=== PATIENT | male | born 1950 | race Caucasian/White ===

== ENCOUNTER 2016-09-03 10:08 | Inpatient (IN) | payer OTHER ==
[2016-09-03] VITALS (7 sets, daily range): BP systolic 133–176; BP diastolic 76–105; PULSE 57–78; RESP 15–19; TEMP 97.3–98.9; O2SAT 96–98
[~2016-09-03] VITALS: Ht 171.4 cm; Wt 80.1 kg
[~2016-09-03 10:08] MED LIST: ATEN100T PO; FENO145T2 PO; GABA300C5 PO; HYDR-3583 PO
[2016-09-03 11:28] LABS: AUTOMATED NEUTROPHIL # 6.7 TH/MM3 (1.8-7.7); BASOPHIL # 0.1 TH/MM3 (0-0.2); BASOPHIL % 0.6 % (0.0-2.0); EOSINOPHIL # 0.1 TH/MM3 (0-0.4); HEMATOCRIT 48.5 % (39.0-51.0); HEMO FLAGS DIFF FINAL; LYMPH % 13.3 % (9.0-44.0); LYMPHOCYTE # 1.2 TH/MM3 (1.0-4.8); MEAN CELL VOLUME 92.9 FL (80.0-100.0); MEAN CORPUSCULAR HEMOGLOBIN 30.5 PG (27.0-34.0); MEAN CORPUSCULAR HGB CONC 32.8 % (32.0-36.0); MONO % 5.6 % (0.0-8.0); NEUT % 79.5 % (16.0-70.0); PLATELET COUNT 261 TH/MM3 (150-450); RED BLOOD COUNT 5.21 MIL/MM3 (4.50-5.90); RED CELL DISTRIBUTION WIDTH 13.4 % (11.6-17.2); WHITE BLOOD COUNT 8.6 TH/MM3 (4.0-11.0)
--- NOTE | 2016-09-03 11:40 | PD ---
HPI Chief Complaint: Neuro Symptoms/ Deficits Time Seen by Provider: 10:27 Travel History International Travel<30 days: No Contact w/Intl Traveler<30days: No Traveled to known affect area: No History of Present Illness HPI 65yo M with PMH of HTN brought in by sister and brother in law for evaluation. States that he has been acting strange since yesterday such as stating the TV was not on when it was and having trouble with salad dressing bottle. Pt returned home at around 5pm and sister noticed his mannerism was different. Pt was at work today and coworkers stated he had a facial droop that had resolved when he got to the ED. Stated that his right lips were up and left side was down. Pt denies any fever, chest pain, sob, n/v, abdominal pain, focal weakness or numbness. PFSH Past Medical History High Cholesterol: Yes Hypertension: Yes Past Surgical History Surgical History: No Previous Surgery Social History Alcohol Use: Yes (2/DAY RUM) Tobacco Use: Yes (1/2 PPD) Allergies-Medications (Allergen,Severity, Reaction): Coded Allergies: No Known Allergies (Unverified , 08/25/16) Reported Meds & Prescriptions Reported Meds & Active Scripts Active Hydrocodone-Acetaminophen 10-325 mg Tab 1 Tab PO Q6H PRN Reported Atenolol 100 Mg Tab 100 Mg PO DAILY Fenofibrate 145 Mg Tab 125 Mg PO DAILY Review of Systems Except as stated in HPI: all other systems reviewed are Neg Physical Exam Narrative GENERAL: 65yo M not in distress. SKIN: Warm and dry. HEAD: Atraumatic. Normocephalic. EYES: Pupils equal and round. No scleral icterus. No injection or drainage. ENT: No nasal bleeding or discharge. Mucous membranes pink and moist. NECK: Trachea midline. No JVD. CARDIOVASCULAR: Regular rate and rhythm. No murmur appreciated. RESPIRATORY: No accessory muscle use. Clear to auscultation. Breath sounds equal bilaterally. GASTROINTESTINAL: Abdomen soft, non-tender, nondistended. MUSCULOSKELETAL: No obvious deformities. No clubbing. No cyanosis. No edema. NEUROLOGICAL: Awake and alert. No obvious cranial nerve deficits. Motor grossly within normal limits. Normal speech. PSYCHIATRIC: Appropriate mood and affect; insight and judgment normal. Data Data Last Documented VS Vital Signs Date Time Temp Pulse Resp B/P Pulse Ox O2 Delivery O2 Flow Rate FiO2 2/23/17 10:30 98 21 09/03/16 10:27 98.9 57 15 155/[address] Brain W/O Iv Contrast(Rout) (09/03/16 ) Complete Blood Count With Diff (09/03/16 11:06) Basic Metabolic Panel (Bmp) (09/03/16 11:06) Prothrombin Time / Inr (Pt) (09/03/16 11:06) Act Partial Throm Time (Ptt) (09/03/16 11:06) Consult Neurology (09/03/16 ) Aspirin (Aspirin) (09/03/16 12:30) Admit Order (Ed Use Only) (09/03/16 12:24) Labs Laboratory Tests Test 09/03/16 11:15 White Blood Count 8.6 TH/MM3 Red Blood Count 5.21 MIL/MM3 Hemoglobin 15.9 GM/DL Hematocrit 48.5 % Mean Corpuscular Volume 92.9 FL Mean Corpuscular Hemoglobin 30.5 PG Mean Corpuscular Hemoglobin 32.8 % Concent Red Cell Distribution Width 13.4 % Platelet Count 261 TH/MM3 Mean Platelet Volume 8.4 FL Neutrophils (%) (Auto) 79.5 % Lymphocytes (%) (Auto) 13.3 % Monocytes (%) (Auto) 5.6 % Eosinophils (%) (Auto) 1.0 % Basophils (%) (Auto) 0.6 % Neutrophils # (Auto) 6.7 TH/MM3 Lymphocytes # (Auto) 1.2 TH/MM3 Monocytes # (Auto) 0.5 TH/MM3 Eosinophils # (Auto) 0.1 TH/MM3 Basophils # (Auto) 0.1 TH/MM3 CBC Comment DIFF FINAL Differential Comment Erythrocyte Sedimentation Rate 1 mm/hr Prothrombin Time 10.9 SEC Prothromb Time International 1.0 RATIO Ratio Activated Partial 27.0 SEC Thromboplast Time Sodium Level 142 MEQ/L Potassium Level 4.0 MEQ/L Chloride Level 108 MEQ/L Carbon Dioxide Level 26.5 MEQ/L Anion Gap 8 MEQ/L Blood Urea Nitrogen 14 MG/DL Creatinine 0.95 MG/DL Estimat Glomerular Filtration 80 ML/MIN Rate Random Glucose 107 MG/DL Calcium Level 9.0 MG/DL MDM Medical Decision Making Medical Screen Exam Complete: Yes Emergency Medical Condition: Yes Interpretation(s) EKG: Sinus bradycardia at 54bpm. Normal axis. No signs of ischemia. Differential Diagnosis CVA vs. TIA Narrative Course 65yo M who was acting different as per sister yesterday afternoon. ? Facial droop at work today. Pt denies any complaints here. CT brain showed evolving right MCA stroke with no evidence of hemorrhage at present. Aspirin 325mg PO given. Discussed with Dr. Pandey from neurology and he will place orders. Discussed with [facility] and admitted to Dr. Thorpe. Labs reviewed, unremarkable. Diagnosis Primary Impression: CVA (cerebral vascular accident) Qualified Code: I63.9 - Cerebrovascular accident (CVA), unspecified mechanism Admitting Information Admitting Physician Requests: Admit Raven Pool DO Sep 03, 2016 11:40
[2016-09-03 11:41] LABS: BICARBONATE 26.5 MEQ/L (21.0-32.0)
[2016-09-03 11:43] LABS: PROTHROMBIN TIME - PATIENT 10.9 SEC (9.8-11.6)
--- NOTE | 2016-09-03 12:00 | RADHPO ---
EXAM DATE/TIME: 09/03/2016 11:21 [facility] COMPARISON: No previous studies available for comparison. INDICATIONS : Evaluate for cerebrovascular accident. Altered mental status and left facial droop since last night. RADIATION DOSE: 65.57 CTDIvol (mGy) MEDICAL HISTORY : Hypertension. SURGICAL HISTORY : None. ENCOUNTER: Initial ACUITY: 1 day PAIN SCALE: 0/10 LOCATION: cranial TECHNIQUE: Multiple contiguous axial images were obtained of the head. Using automated exposure control and adj ustment of the mA and/or kV according to patient size, radiation dose was kept as low as reasonably a chievable to obtain optimal diagnostic quality images. FINDINGS: There is hypodensity and local effacement of cortical sulci in the low to mid convexity right frontal region consistent with evolving MCA stroke. There is also diminished subcortical and periventricular white matter hypodensity in the high convexity region which may be more chronic. The left hemisphere is intact and unremarkable. There is no evidence of macroscopic hemorrhage at present. The extracran ial structures are benign and intact. CONCLUSION: Evolving right MCA stroke with no evidence of hemorrhage at present. Jeff Trevino MD on September 03, 2016 at 11:55 Board Certified Radiologist. This report was verified electronically.
[2016-09-03] MEDS ORDERED: D5-1/2 NS + KCL 20 MEQ INJ 1,000 ML IV SCH (12:25)
[2016-09-03] MEDS ORDERED: DEXTROSE 50% IN WATER 50 ML VIAL(D50) IV PUSH PRN (12:30)
[2016-09-03] MEDS ORDERED: SODIUM CHLORIDE 0.9% FLUSH 5 ML FLUSH IVF PRN (12:30)
[2016-09-03] MEDS ORDERED: ONDANSETRON HCL 4 MG/2 ML VIAL IVP PRN (12:30)
[2016-09-03] MEDS ORDERED: GLUCAGON 1 MG/ML VIAL IM/SQ PRN (12:30)
[2016-09-03] MEDS ORDERED: NALOXONE HCL 0.4 MG/ML AMP IV PRN (12:30)
[2016-09-03] MEDS ORDERED: ASPIRIN 325 MG TAB PO ONE (12:30)
[2016-09-03] MEDS ORDERED: SODIUM CHLORIDE 0.9% FLUSH 5 ML FLUSH FLUSH PRN (12:30)
[2016-09-03] MEDS ORDERED: SODIUM CHLOR 0.9% 1000 ML INJ 1,000 ML IV SCH (12:41)
[2016-09-03] MEDS: HEPARIN SODIUM - SQ 10,000 UNITS/ML VIAL SQ SCH ×2 (12:51→20:20)
[2016-09-03 13:26] LABS: ALT (GPT) 30 U/L (12-78); AST (GOT) 18 U/L (15-37)
[2016-09-03 13:29] LABS: CREATINE KINASE 216 U/L (39-308)
[2016-09-03 13:58] LABS: BLOOD, URINE NEG (NEG); GLUCOSE,URINE NEG (NEG); KETONE, URINE NEG (NEG); NITRITE,URINE NEG (NEG); PH, URINE 5.5 (5.0-8.5)
[2016-09-03] MEDS ORDERED: GADODIAMIDE PF 287 MG/ML 20 ML VIAL (for RAD MRI) IV ONE (14:02)
[2016-09-03 14:26] LABS: METHOD OF COLLECTION CLEAN CATCH
[2016-09-03 14:27] LABS: COMMENT (UR) CULT NOT INDICATED; CULTURE IF INDICATED CULT NOT INDICATED; RBC, URINE 0-3 /hpf (0-3); SQUAMOUS EPITHELIAL CELL URINE 0-5 /hpf (0-5); URINE COLOR YELLOW (YELLW/STRAW); WBC, URINE 0-2 /hpf (0-5)
--- NOTE | 2016-09-03 14:41 | RADHPO ---
EXAM DATE/TIME: 09/03/2016 13:51 [facility] COMPARISON: CT BRAIN W/O CONTRAST, September 03, 2016, 11:21. INDICATIONS : CVA. Left facial droop and confusion. CONTRAST: 20 cc Omniscan (gadodiamide) IV MEDICAL HISTORY : Hypertension. SURGICAL HISTORY : Right knee surgery. ENCOUNTER: Initial ACUITY: 1 day PAIN SCORE: 0/10 LOCATION: Head. TECHNIQUE: Multiplanar, multisequence MRI of the brain was performed both prior to and following the administrat ion of paramagnetic contrast. FINDINGS: There is an evolving right low to mid convexity frontal stroke. There is mild nonacute signal change in portions of the high convexity right parietal cortex and subcortical white matter as well as in po rtions of the right centrum semiovale. There is no evidence of hemorrhage at present. There is no georgie dence of abnormal parenchymal enhancement or underlying mass lesion. Left hemisphere is unremarkable. Posterior fossa and brainstem structures are unremarkable. There is mild mucosal disease in the maxillary antra. CONCLUSION: Early subacute right frontal stroke. Jeff Trevino MD on September 03, 2016 at 14:35 Board Certified Radiologist. This report was verified electronically.
--- NOTE | 2016-09-03 14:44 | RADHPO ---
EXAM DATE/TIME: 09/03/2016 13:51 [facility] COMPARISON: No previous studies available for comparison. INDICATIONS : Stroke. Left facial droop and confusion. CONTRAST: 20 cc Omniscan (gadodiamide) IV MEDICAL HISTORY : Hypertension. SURGICAL HISTORY : Right knee surgery. ENCOUNTER: Initial ACUITY: 1 day PAIN SCORE: 0/10 LOCATION: Head. Percent stenosis is calculated using the diameter of the stenotic region over the diameter of the nor mal distal internal carotid artery. TECHNIQUE: Bolus infused MRA of the extracranial circulation was performed using a neurovascular coil. Post pro cessing was performed including rotationg subvolume maximum intensity projections of each carotid art lesley, rotating full volume maximum intensity projections of both carotid arteries, sagittal and luna l sliding thin slab reformations of each carotid artery, and left oblique sliding thin slab reformati on through the aortic arch to include the origin of the arch branch vessels. FINDINGS: AORTIC ARCH: There is a three vessel origin of the great vessels from the aorta. No evidence of ostial narrowing. RIGHT CAROTID: High-grade stenotic narrowing at the origin of the right internal carotid artery. Above this, the ves byron is small in caliber but patent to the skull base. LEFT CAROTID: The common carotid artery is intact. The carotid bulb has a normal configuration without ulceration or narrowing. The internal carotid artery lumen is smooth without stenosis. The external carotid ar sheila is intact. VERTEBRALS: The vertebral arteries have a symmetric diameter. No stenotic lesions are seen. CONCLUSION: High grade stenosis at the origin of the right internal carotid artery. Jeff Trevino MD on September 03, 2016 at 14:40 Board Certified Radiologist. This report was verified electronically.
--- NOTE | 2016-09-03 14:46 | RADHPO ---
EXAM DATE/TIME: 09/03/2016 13:51 [facility] COMPARISON: No previous studies available for comparison. INDICATIONS : CVA. Left facial droop and confused. MEDICAL HISTORY : Hypertension. SURGICAL HISTORY : Knee surgery. ENCOUNTER: Initial ACUITY: 1 day PAIN SCORE: 0/10 LOCATION: Head. Please note a normal MRA of the brain does not entirely exclude the possibility of a small aneurysm, nor the possibility of distal intracranial vessel disease. TECHNIQUE: 3D time of flight MRA was performed. Source images, multiplanar STS MIP, and 3D volume MIP reconstru ctions were reviewed. FINDINGS: There is severely diminished flow related enhancement of the visualized right internal carotid artery . Intracranially, the anterior circulation vessels are intact but diminutive by comparison to the con tralateral left side. The posterior circulation vessels are intact and unremarkable. CONCLUSION: Severely diminished flow related enhancement in the right internal denise and artery and diminished sign al throughout the anterior circulation vessels on the right. Jeff Trevino MD on September 03, 2016 at 14:43 Board Certified Radiologist. This report was verified electronically.
[2016-09-03] MEDS ORDERED: INSULIN ASPART SUPPLEMENTAL SCALE SQ SCH (16:00)
--- NOTE | 2016-09-03 16:41 | RADHPO ---
EXAM DATE/TIME: 09/03/2016 14:51 [facility] COMPARISON: MRA CAROTIDS W CONTRAST, September 03, 2016, 13:51. INDICATIONS : Cerebral vascular accident, left sided facial drooping. MEDICAL HISTORY : Hypercholesterolemia. Hypertension. SURGICAL HISTORY : Knee surgery. ENCOUNTER: Initial ACUITY: 2 days PAIN SCORE: 0/10 LOCATION: Bilateral neck PEAK SYSTOLIC VELOCITIES (cm/sec): ICA/CCA RATIO: Right: 1.3 Left: 1.7 ICA: Right: 77.9 Left: 99.5 CCA: Right: 60.1 Left: 58.4 ECA: Right: 81.2 Left: 78.8 VERTEBRAL: Right: 43.5 antegrade Left: 40.6 antegrade Elevated flow velocities and ICA/CCA ratios have been found to correlate with increased degrees of vessel stenosis, calculated as percentage of diameter relative to a normal segment of distal ICA/CCA FINDINGS: Examination quality is less than optimal due to patient inability to cooperate with examination. RIGHT CAROTID: There is mild calcified plaque in the carotid bulb and severe calcified plaque in the proximal staff internist office based only al carotid artery. The waveforms are within normal limits. LEFT CAROTID: No significant stenosis is visualized. There is mild calcified plaque in the carotid bulb. The wavefo tona are within normal limits. VERTEBRAL ARTERIES: Antegrade flow is seen in both vertebral arteries. MISCELLANEOUS: None. CONCLUSION: 1. Severe calcified plaque with high-grade stenosis in the proximal right internal carotid artery. Ve locity measurements are decreased through this area with high resistance waveform indicating a high-g rade stenosis greater than 70%. 2. There is mild atherosclerotic disease in the left carotid bulb but less than 50% stenosis is prese nt. 3. There is antegrade flow in both vertebral arteries. Jeff Patel MD on September 03, 2016 at 16:27 Board Certified Radiologist. This report was verified electronically.
--- NOTE | 2016-09-03 16:58 | EC ---
Study Study Date:09/03/2016 STUDY CONCLUSIONS SUMMARY - Left ventricle: The cavity size was normal. Systolic function was normal. The estimated ejection fraction was in the range of 55% to 60%. Wall motion was normal; there were no regional wall motion abnormalities. Doppler parameters are consistent with abnormal left ventricular relaxation (grade 1 diastolic dysfunction). - Mitral valve: Mild regurgitation. - Tricuspid valve: Mild regurgitation. If LV function is below 40, please consider prescribing an ACEI or ARB or document rationale for non-use. PROCEDURE DATA STUDY STATUS: Elective. Procedure: Transthoracic echocardiography. Image quality was fair. Scanning was performed from the parasternal, apical, and subcostal acoustic windows. Study completion: The patient tolerated the procedure well. Transthoracic echocardiography. M-mode, complete 2D, complete spectral Doppler, and color Doppler. Patient status: Inpatient. CARDIAC ANATOMY LEFT VENTRICLE: The cavity size was normal. Systolic function was normal. The estimated ejection fraction was in the range of 55% to 60%. Wall motion was normal; there were no regional wall motion abnormalities. Doppler parameters are consistent with abnormal left ventricular relaxation (grade 1 diastolic dysfunction). AORTIC VALVE: The valve appears to be grossly normal. Doppler: There was no stenosis. No significant regurgitation. MITRAL VALVE: The valve appears to be grossly normal. Doppler: There was no evidence for stenosis. Mild regurgitation. LEFT ATRIUM: The atrium was at the upper limits of normal in size. RIGHT VENTRICLE: The cavity size was normal. Systolic function was normal. PULMONIC VALVE: Not well visualized. Doppler: No significant regurgitation. TRICUSPID VALVE: The valve appears to be grossly normal. Doppler: There was no evidence for stenosis. Mild regurgitation. PERICARDIUM: There was no pericardial effusion. BASIC MEASUREMENTS ADULT NORMAL Left ventricle LV internal dimension, ED, chordal level, 44.8 mm 43-52 PLAX LV internal dimension, ES, chordal level, 32.8 mm 23-38 PLAX Fractional shortening, chordal level, PLAX *27 % >29 LV posterior wall thickness, ED 10.2 mm IVS/LVPW ratio, ED 1.27 <1.3 Ventricular septum Septal thickness, ED 13 mm Aortic valve Leaflet separation 20 mm 15-26 Right ventricle RV internal dimension, ED, PLAX 24.3 mm 19-38 BASIC MEASUREMENTS ADULT NORMAL Aortic valve Leaflet separation 20 mm 15-26 Aorta Root diameter, ED 31 mm 20-37 Left atrium Anterior-posterior dimension, ES 40 mm 19-40 LA/aortic root ratio 1.29 DOPPLER MEASUREMENTS ADULT NORMAL Mitral valve Peak E-wave velocity 42.4 cm/s Peak A-wave velocity 64.2 cm/s Peak E/A ratio 0.7 LEGEND: Mean values are shown as u=mean value. Asterisk (*) dunne values outside specified normal range. Prepared and signed by Alan Figueroa [id number]
--- NOTE | 2016-09-03 17:06 | OTSOAPIP ---
TIME SESSION COMPLETED: PM TREATMENT TIME: 0 MINS. CHART REVIEWED. O: ATTEMPTED TO SEE FOR OT EVALUATION, HOWEVER HAVING A PROCEDURE IN ROOM. WILL FOLLOW NEXT DAY. Therapist: EDMOND VÁSQUEZ OT/Eddy Signature on file
[2016-09-03 17:13] LABS: FREE T4 1.23 NG/DL (0.76-1.46); HDL CHOLESTEROL 51.1 MG/DL (40.0-60.0); LDL CHOLESTEROL 24 MG/DL (0-99)
[2016-09-03 17:49] LABS: HEMOGLOBIN A1a 0.9 %; HEMOGLOBIN A1b 1.4 %; HEMOGLOBIN Ao 86.6 %; HEMOGLOBIN LA1C 2.1 %; HEMOGLOBIN P3 3.4 %
[2016-09-03] MEDS: SODIUM CHLOR 0.9% 1000 ML INJ 1,000 ML IV SCH (18:32)
[2016-09-03] MEDS: SODIUM CHLORIDE 0.9% FLUSH 5 ML FLUSH FLUSH SCH (19:39)
[2016-09-03] MEDS ORDERED: SODIUM CHLORIDE 0.9% FLUSH 5 ML FLUSH IVF SCH (21:00)
[2016-09-04] VITALS (10 sets, daily range): BP systolic 133–166; BP diastolic 81–96; PULSE 47–71; RESP 16–18; TEMP 97–98.9; O2SAT 94–98
[2016-09-04] MEDS: SODIUM CHLOR 0.9% 1000 ML INJ 1,000 ML IV SCH ×3 (04:32→23:03)
[2016-09-04 07:34] LABS: AUTOMATED NEUTROPHIL # 5.1 TH/MM3 (1.8-7.7); BASOPHIL # 0.1 TH/MM3 (0-0.2); BASOPHIL % 0.7 % (0.0-2.0); EOSINOPHIL # 0.1 TH/MM3 (0-0.4); EOSINOPHIL % 1.7 % (0.0-4.0); HEMATOCRIT 45.1 % (39.0-51.0); HEMO FLAGS DIFF FINAL; LYMPH % 18.6 % (9.0-44.0); LYMPHOCYTE # 1.3 TH/MM3 (1.0-4.8); MEAN CELL VOLUME 92.7 FL (80.0-100.0); MEAN CORPUSCULAR HEMOGLOBIN 31.5 PG (27.0-34.0); MONO % 7.3 % (0.0-8.0); NEUT % 71.7 % (16.0-70.0); PLATELET COUNT 198 TH/MM3 (150-450); RED BLOOD COUNT 4.86 MIL/MM3 (4.50-5.90); RED CELL DISTRIBUTION WIDTH 13.4 % (11.6-17.2); WHITE BLOOD COUNT 7.1 TH/MM3 (4.0-11.0)
[2016-09-04 08:09] LABS: BICARBONATE 23.8 MEQ/L (21.0-32.0); HDL CHOLESTEROL 40.7 MG/DL (40.0-60.0); POTASSIUM 4.1 MEQ/L (3.5-5.1)
--- NOTE | 2016-09-04 08:31 | HHI.PR ---
Subjective Remarks sr Objective Vital Signs Date Time Temp Pulse Resp B/P Pulse Ox O2 Delivery O2 Flow Rate FiO2 09/04/16 08:16 98.9 60 18 147/89 94 09/04/16 05:43 97.2 71 17 154/88 97 09/04/16 01:30 47 09/04/16 00:21 97.2 63 17 162/89 96 09/03/16 20:22 96 21 09/03/16 20:14 63 09/03/16 20:00 97.3 59 16 160/105 96 09/03/16 16:00 98.6 78 19 133/76 96 09/03/16 15:50 58 16 97 09/03/16 12:29 61 15 176/103 98 09/03/16 10:30 98 21 09/03/16 10:27 98.9 57 15 155/89 98 I/O 09/03/16 09/03/16 09/03/16 09/04/16 09/04/16 09/04/16 07:00 15:00 23:00 07:00 15:00 23:00 Intake Total 937 ml 240 ml Output Total 195 ml 825 ml Balance -195 ml 937 ml -585 ml Intake Oral 280 ml 240 ml IV Total 657 ml Output Urine Total 195 ml 825 ml # Voids 1 1 # Bowel Movements 0 Result Diagram: 09/04/16 0709 09/04/16 0709 Objective Remarks left droop vff 5/5 bue and ble dss legs nl now Assessment and Plan Assessment and Plan imp await vascular but i am hesitant to wait 4-6 weeks for cea asa for now we could add statin? i dw rads about possible earlier stent? they will callme back Jesus Pandey MD Sep 04, 2016 08:31
[2016-09-04] MEDS: SODIUM CHLORIDE 0.9% FLUSH 5 ML FLUSH FLUSH SCH ×2 (08:32→21:00)
[2016-09-04] MEDS: ASPIRIN EC 325 MG TABEC PO SCH (08:32)
[2016-09-04] MEDS: HEPARIN SODIUM - SQ 10,000 UNITS/ML VIAL SQ SCH ×2 (08:32→23:02)
--- NOTE | 2016-09-04 10:22 | HHI.HP ---
[facility] Deep Jaed MD Admission Diagnosis CVA Diagnoses: Chief Complaint: CONFUSION, FACIAL DROOP Travel History International Travel<30 Days: No Contact w/Intl Traveler <30 Da: No Traveled to Known Affected Are: No History of Present Illness This is a 65-year-old male who is generally in good health, history of hypertension and tobacco abuse. Patient was brought into the emergency room by his sister and [id number] for evaluation after he was noted acting confused for the last 2 days. Patient's sister endorses that she noted that he came home from work 2 days ago and he seemed disoriented and taking time doing simple tasks, had trouble opening a salad bottle. He was noted shaking. Initially his sister thought that maybe he had had some alcohol which he denied. Yesterday he actually didn't wake up early to go to work and when she woke him up he thought it was Wednesday. He got up and got dressed and drove to work. She called to check on him and one of his coworkers informed her to come pick him up as he noted at facial droop and that he had not been acting right. He went to the [facility] emergency room and the facial droop had resolved. Patient was evaluated, imaging studies were completed. CT of the brain showed evolving right MCA stroke with no evidence of hemorrhage. Aspirin was given. Dr. Pandey was called and requested transfer to [facility]. Neck MRA has been done and shows high-grade stenosis at the origin of the right internal carotid artery. Patient is examined in the presence of his sister. Patient still has residual facial droop, he is not confused and answering questions appropriately. Patient is somewhat anxious and is noted mildly tremulous. Indicates that he doesn't drink every day but occasionally will have a couple of cocktails a day. Endorses a lot of stress as he recently from his of 32 years. Denies any depression, no suicidal ideation. Patient is admitted for further evaluation and treatment. Review of Systems Constitutional: DENIES: Diaphoretic episodes, Fatigue, Fever, Weight gain, Weight loss, Chills, Dizziness, Change in appetite, Night Sweats Endocrine: DENIES: Heat/cold intolerance, Polydipsia, Polyuria, Polyphagia Eyes: DENIES: Blurred vision, Diplopia, Eye inflammation, Eye pain, Vision loss , Photosensitivity, Double Vision Ears, nose, mouth, throat: DENIES: Tinnitus, Hearing loss, Vertigo, Nasal discharge, Oral lesions, Throat pain, Hoarseness, Ear Pain, Running Nose, Epistaxis, Sinus Pain, Toothache, Odynophagia Respiratory: DENIES: Apneas, Cough, Snoring, Wheezing, Hemoptysis, Sputum production, Shortness of breath Cardiovascular: DENIES: Chest pain, Palpitations, Syncope, Dyspnea on Exertion , PND, Lower Extremity Edema, Orthopnea, Claudication Gastrointestinal: DENIES: Abdominal pain, Black stools, Bloody stools, Constipation, Diarrhea, Nausea, Vomiting, Difficulty Swallowing, Anorexia Genitourinary: DENIES: Sexual dysfunction, Urinary frequency, Urinary incontinence, Urgency, Hematuria, Dysuria, Nocturia, Penile Discharge, Testicular Pain, Testicular Swelling Musculoskeletal: COMPLAINS OF: Back pain, DENIES: Joint pain, Muscle aches, Stiffness, Joint Swelling, Neck pain Integumentary: DENIES: Abnormal pigmentation, Nail changes, Pruritus, Rash Hematologic/lymphatic: DENIES: Bruising, Lymphadenopathy Immunologic/allergic: DENIES: Eczema, Urticaria Neurologic: DENIES: Abnormal gait, Headache, Localized weakness, Paresthesias, Seizures, Speech Problems, Tremor, Poor Balance Psychiatric: COMPLAINS OF: Anxiety, DENIES: Confusion, Mood changes, Depression, Hallucinations, Agitation, Suicidal Ideation, Homicidal Ideation, Delusions Other CONFUSED, FACIAL DROOP Past Family Social History Past Medical History HTN Hyperlipidemia Tobacco abuse Past Surgical History Arthroscopic knee repair Reconstructive back surgery Reported Medications Reported Meds & Active Scripts Active Hydrocodone-Acetaminophen 10-325 mg Tab 1 Tab PO Q6H PRN Reported Atenolol 100 Mg Tab 100 Mg PO DAILY Fenofibrate 145 Mg Tab 125 Mg PO DAILY Allergies: Coded Allergies: No Known Allergies (Unverified , 08/25/16) Active Ordered Medications Inpatient Medications Aspirin 325 mg 325 mg DAILY PO Last administered on 09/04/16t 08:32; Start at 09:00 Dextrose (D50w (Vial) Inj) 25 ml UNSCH PRN IV PUSH HYPOGLYCEMIA-SEE COMMENTS; Start 09/03/16 at 12:30; Stop 09/03/16 at 18:16; Status DC Glucagon (Glucagon Inj) 1 mg UNSCH PRN IM/SQ HYPOGLYCEMIA-SEE COMMENTS; Start 09/03/16 at 12:30; Stop 09/03/16 at 18:16; Status DC Heparin Sodium (Porcine) (Heparin Inj) 5,000 units Q12HR SQ Last administered on 09/04/16 08:32; Start 09/03/16 at 13:00 Insulin Aspart (NovoLOG SUPPLEMENTAL SCALE) 1 ACHS SLIDING SCALE SQ ; Start at 16:00; Stop 09/03/16 at 18:16; Status DC IV Flush (NS Flush) 2 ml UNSCH PRN IVF FLUSH AFTER USING IV ACCESS; Start 09/03 at 12:30; Stop 09/03/16 at 12:39; Status DC Naloxone HCl (Narcan Inj) 0.4 mg UNSCH PRN IV SEE LABEL COMMENTS; Start at 12:30 Ondansetron HCl (Zofran Inj) 4 mg Q6H PRN IVP NAUSEA OR VOMITING; Start at 12:30 Potassium Chloride/Dextrose/ Sod Cl (D5-1/2 NS + KCl 20 Meq Inj) 1,000 ml @ 50 mls/hr Q20H IV Last administered on 09/03/16 12:51; Start 09/03/16 at 12:25; Stop 09/03/16 at 19:01; Status DC Sodium Chloride (NS 1000 ml Inj) 1,000 ml @ 100 mls/hr Q10H IV ; Start at 18:32 Family History Mother , hx CEA, CAD, stent Father , prostate cancer Brother, , AIDS Brother, , pancreatitis complications Sister, a&w, hx DM II Older brother, a&w, healthy Social History Recently , has grown children. Having some stress due to work and divorce. Smokes 1 ppd since age 19, drinks approximately 5 + drinks a week, no illegal drug use. Physical Exam Vital Signs Vital Signs Date Time Temp Pulse Resp B/P Pulse Ox O2 Delivery O2 Flow Rate FiO2 09/04/16 08:16 98.9 60 18 147/89 94 09/04/16 08:00 60 09/04/16 05:43 97.2 71 17 154/88 97 09/04/16 01:30 47 09/04/16 00:21 97.2 63 17 162/89 96 09/03/16 20:22 96 21 09/03/16 20:14 63 09/03/16 20:00 97.3 59 16 160/105 96 09/03/16 16:00 98.6 78 19 133/76 96 09/03/16 15:50 58 16 97 09/03/16 12:29 61 15 176/103 98 09/03/16 10:30 98 21 09/03/16 10:27 98.9 57 15 155/89 98 Physical Exam GENERAL: This is a well-nourished, well-developed patient, in no apparent distress. SKIN: No rashes, ecchymoses or lesions. Cool and dry. HEAD: Atraumatic. Normocephalic. No temporal or scalp tenderness. EYES: Pupils equal round and reactive. Extraocular motions intact. No scleral icterus. No injection or drainage. ENT: Nose without bleeding, purulent drainage or septal hematoma. Throat without erythema, tonsillar hypertrophy or exudate. Uvula midline. Airway patent. NECK: Trachea midline. No JVD or lymphadenopathy. Supple, nontender, no meningeal signs. CARDIOVASCULAR: Occasional irregular beats, without murmurs, gallops, or rubs. RESPIRATORY: Clear to auscultation. Breath sounds equal bilaterally. No wheezes , rales, or rhonchi. GASTROINTESTINAL: Abdomen soft, non-tender, nondistended. No hepato-splenomegaly , or palpable masses. No guarding. MUSCULOSKELETAL: Extremities without clubbing, cyanosis, or edema. No joint tenderness, effusion, or edema noted. No calf tenderness. Negative Homans sign bilaterally. NEUROLOGICAL: Awake and alert. oriented x 3. Left facial droop. Motor and sensory grossly within normal limits. Five out of 5 muscle strength in all muscle groups. Normal speech. Mild tremors noted both upper extremities. Laboratory Laboratory Tests Test 09/03/16 09/03/16 09/03/16 09/04/16 11:15 13:00 13:18 07:09 White Blood Count 8.6 7.1 Red Blood Count 5.21 4.86 Hemoglobin 15.9 15.3 Hematocrit 48.5 45.1 Mean Corpuscular Volume 92.9 92.7 Mean Corpuscular Hemoglobin 30.5 31.5 Mean Corpuscular Hemoglobin 32.8 34.0 Concent Red Cell Distribution Width 13.4 13.4 Platelet Count 261 198 Mean Platelet Volume 8.4 9.3 Neutrophils (%) (Auto) 79.5 71.7 Lymphocytes (%) (Auto) 13.3 18.6 Monocytes (%) (Auto) 5.6 7.3 Eosinophils (%) (Auto) 1.0 1.7 Basophils (%) (Auto) 0.6 0.7 Neutrophils # (Auto) 6.7 5.1 Lymphocytes # (Auto) 1.2 1.3 Monocytes # (Auto) 0.5 0.5 Eosinophils # (Auto) 0.1 0.1 Basophils # (Auto) 0.1 0.1 CBC Comment DIFF FINAL DIFF FINAL Differential Comment Erythrocyte Sedimentation Rate 1 Prothrombin Time 10.9 Prothromb Time International 1.0 Ratio Activated Partial 27.0 Thromboplast Time Sodium Level 142 140 Potassium Level 4.0 4.1 Chloride Level 108 109 Carbon Dioxide Level 26.5 23.8 Anion Gap 8 7 Blood Urea Nitrogen 14 10 Creatinine 0.95 0.86 Estimat Glomerular Filtration 80 90 Rate Random Glucose 107 102 Calcium Level 9.0 8.5 Hemoglobin A1c 5.1 Aspartate Amino Transf 18 (AST/SGOT) Alanine Aminotransferase 30 (ALT/SGPT) Total Creatine Kinase 216 Troponin I LESS THAN 0.02 Triglycerides Level 110 178 Cholesterol Level 97 102 LDL Cholesterol 24 26 HDL Cholesterol 51.1 40.7 Cholesterol/HDL Ratio 1.89 2.50 Vitamin B12 Level 480 Free Thyroxine 1.23 Thyroid Stimulating Hormone 1.110 3rd Gen Urine Collection Type CLEAN CATCH Urine Color YELLOW Urine Turbidity CLEAR Urine pH 5.5 Urine Specific [place] 1.016 Urine Protein NEG Urine Glucose (UA) NEG Urine Ketones NEG Urine Occult Blood NEG Urine Nitrite NEG Urine Bilirubin NEG Urine Leukocyte Esterase NEG Urine RBC 0-3 Urine WBC 0-2 Urine Squamous Epithelial 0-5 Cells Microscopic Urinalysis Comment CULT NOT INDICATED Urine Collection Time 13:18 Result Diagram: 09/04/16 0709 09/04/16 0709 Imaging Last Impressions Neck Magnetic Resonance Angiography 09/03/16 1241 Signed Impressions: Service Date/Time: August 13:51 - CONCLUSION: High grade stenosis at the origin of the right internal carotid artery. Jeff Trevino MD Brain MRI 09/03/16 1241 Signed Impressions: Service Date/Time: August 13:51 - CONCLUSION: Early subacute right frontal stroke. Jeff Trevino MD Head Magnetic Resonance Angiography 09/03/16 Signed Impressions: Service Date/Time: August 13:51 - CONCLUSION: Severely diminished flow related enhancement in the right internal denise and artery and diminished signal throughout the anterior circulation vessels on the right. Jeff Trevino MD Head CT 09/03/16 Signed Impressions: Service Date/Time: August 11:21 - CONCLUSION: Evolving right MCA stroke with no evidence of hemorrhage at present. Jeff Trevino MD Carotid Artery Ultrasound 09/03/16 Signed Impressions: Service Date/Time: August 14:51 - CONCLUSION: 1. Severe calcified plaque with high-grade stenosis in the proximal right internal carotid artery. Velocity measurements are decreased through this area with high resistance waveform indicating a high-grade stenosis greater than 70%%. 2. There is mild atherosclerotic disease in the left carotid bulb but less than 50%% stenosis is present. 3. There is antegrade flow in both vertebral arteries. Jeff Patel MD Assessment and Plan Problem List: (1) CVA (cerebral vascular accident) (2) Hyperlipidemia (3) HTN (hypertension) (4) Tobacco abuse Assessment and Plan Admit to Dr. Mark 65-year-old male with history of hypertension, admitted with 2 day history of not acting right, facial droop and confusion. Evaluated in the emergency room and found with subacute right frontal stroke in right ICA stenosis. -Neurology consulted for evaluation, evaluated per Dr. Pandey. Recommended transfer to [facility]. Input appreciated. -Neuro workup in progress, imaging studies reviewed. Continue with normal saline at 100 hour Head of bed down Bed rest Neuro checks per protocol -Vascular surgery has been consulted for carotid disease Continue with aspirin Has been started on statins Lipid profile noted 2-D echo done, EF 55-60%. -Tobacco cessation counseling done Tobacco abuse Tobacco abuse counseling done Chronic back pain, stable Monitor Tylenol when necessary Daily alcohol use, indicates recent stressors in life, from his after 32 years of marriage. Start thiamine and folic acid -Encouraged to limit alcohol use Heparin for DVT prophylaxis Home medications reviewed, initiated as indicated Plan of care has been discussed with the patient, attending and registered nurse. Further management of the patient will be dependent on the hospital course This patient was seen by myself and Dr. Mark, this H&P is written on her behalf Physician Certification 2 Midnight Certification Type: Admission for Inpatient Services Order for Inpatient Services The services are ordered in accordance with Medicare regulations or non- Medicare payer requirements, as applicable. In the case of services not specified as inpatient-only, they are appropriately provided as inpatient services in accordance with the 2-midnight benchmark. Estimated LOS (days): 2 2 days is the estimated time the patient will need to remain in the hospital, assuming treatment plan goals are met and no additional complications. Post-Hospital Plan: Not yet determined Problem Qualifiers (1) CVA (cerebral vascular accident): (2) Hyperlipidemia: Qualified Code: E78.5 - Hyperlipidemia, unspecified hyperlipidemia type (3) HTN (hypertension): Qualified Code: I10 - Essential hypertension Lillian Gray Sep 04, 2016 10:22
--- NOTE | 2016-09-04 12:02 | PD.CONS ---
[facility] Service Rehabilitation Medicine Consult Requested By Henrietta Mark MD Reason for Consult Comprehensive rehabilitation evaluation. Primary Care Physician Deep Jade MD History of Present Illness Ronal Minor is a 65 year old right hand dominant male admitted to [facility] 09/03/16 with confusion times two days. Head CT showed evolving right MCA stroke;no hemorrhage. He was started on ASA. Brain MRI 09/03/16 showed early subacute rgiht frontal stroke. Carotid ultrasound showed severe plaque with high grade stenosis proximal right ICA. Vascular surgery recommendations for right CEA 4 weeks. Review of Systems Constitutional: COMPLAINS OF: Fatigue Eyes: DENIES: Diplopia Ears, nose, mouth, throat: DENIES: Throat pain Respiratory: DENIES: Shortness of breath Cardiovascular: DENIES: Chest pain Gastrointestinal: DENIES: Abdominal pain Genitourinary: DENIES: Urinary incontinence Musculoskeletal: COMPLAINS OF: Back pain Integumentary: DENIES: Rash Hematologic/lymphatic: DENIES: Bruising Immunologic/allergic: DENIES: Urticaria Neurologic: DENIES: Headache, Localized weakness, Paresthesias Psychiatric: COMPLAINS OF: Confusion Past Family Social History Allergies: Coded Allergies: No Known Allergies (Unverified , 08/25/16) Past Medical History HTN Tobacco abuse Hyperlipidemia Past Surgical History Back surgery Knee arthroscopy Current Medications Current Medications Medications (Trade) Dose Ordered Sig/Naz Route Start Time Stop Time Status Last Admin (NS Flush) 2 ml UNSCH PRN FLUSH 09/03/16 12:30 (NS Flush) 2 ml BID FLUSH 09/03/16 21:00 (Zofran Inj) 4 mg Q6H PRN IVP 09/03/16 12:30 (Heparin Inj) 5,000 units Q12HR SQ 09/03/16 13:00 09/04/16 08:32 (Narcan Inj) 0.4 mg UNSCH PRN IV 09/03/16 12:30 Aspirin 325 mg 325 mg DAILY PO 09/04/16 09:00 09/04/16 08:32 (NS 1000 ml Inj) 1,000 ml @ 100 mls/hr Q10H IV 09/03/16 18:32 Family History Father: prostate CA Mother: CAD Social History Tobacco 46 pack years. Daily ETOH. Exam I&O / VS 09/03/16 09/03/16 09/04/16 15:00 23:00 07:00 Intake Total 937 ml 240 ml Output Total 195 ml 825 ml Balance -195 ml 937 ml -585 ml Intake Oral 280 ml 240 ml IV Total 657 ml Output Urine Total 195 ml 825 ml # Voids 1 1 # Bowel Movements 0 Vital Signs Date Time Temp Pulse Resp B/P Pulse Ox O2 Delivery O2 Flow Rate FiO2 09/04/16 10:33 97 21 09/04/16 08:16 98.9 60 18 147/89 94 09/04/16 08:00 60 09/04/16 05:43 97.2 71 17 154/88 97 09/04/16 01:30 47 09/04/16 00:21 97.2 63 17 162/89 96 09/03/16 20:22 96 21 09/03/16 20:14 63 09/03/16 20:00 97.3 59 16 160/105 96 09/03/16 16:00 98.6 78 19 133/76 96 09/03/16 15:50 58 16 97 09/03/16 12:29 61 15 176/103 98 General: No acute distress Respiratory: Lungs CTA, Non-labored respirations, BS equal Gastrointestinal: Positive Bowel Sounds, Non-Distended Cardiovascular: Normal rate, Regular Rhythm Musculoskeletal: Swelling (None in distal LE) Psychiatric: Cooperative, Appropriate mood & affect Orientation: oriented to Self, oriented to Place, oriented to Time, oriented to Situation Neurologic: Cranial Nerves (Intact 2-12), Facial Symmetry (Mild flattening of left basolabial fold), Speech (Clear with no dysarthria or word finding difficulties), Other (Bilateral UE and LE 5/5) Sensory Intact to light touch bilaterally DTRs: Normal Babinski: Negative Clonus: Negative Assessment and Plan Diagnosis: (1) CVA (cerebral vascular accident) Qualified Code: I63.311 - Cerebrovascular accident (CVA) due to thrombosis of right middle cerebral artery Assessment 1. Right MCA CVA 2. HTN 3. Hyperlipidemia 4. Tobacco abuse 5. Carotid stenosis for right CEA 6. Previous back surgery. Patient reports that additional surgery is planned. Plan 1. PT evaluation in process. Anticipate that patient will progress well with gait 2. OT evaluation in process for ADL's 3. ST swallow evaluation completed and regular diet with thin liquids. Cognitive eval requested 4. Case management working on discharge planning 5. Will follow while hospitalized and at discharge in clinic Thank you for this consult. Joyce Lockwood MD Sep 04, 2016 12:02
--- NOTE | 2016-09-04 12:11 | MB ---
cc: JUAN DIEGO ARMAS DATE OF CONSULTATION 09/03/16 HISTORY OF PRESENT ILLNESS A 65-year-old right-handed man with history of hypertension, hypercholesterolemia. Last evening he seemed somewhat confused and went to work today and they noticed he had a little bit of a left facial droop and thus he subsequently came into the ER. He was found on CT to have a subacute right MCA infarct anterior division. On the MRA of the neck, he has a severe stenosis at the origin of the right internal carotid artery, had some decreased flow intracranially on the right MCA. He has a moderate size right MCA infarct without any hemorrhage and a small more posterior right MCA infarct. The larger infarct is in the frontal lobe. REVIEW OF SYSTEMS He denies any diabetes, VT, stent, angioplasty, A fib, Coumadin. He does not take an aspirin a day. Denies any history of renal, hepatic or pulmonary disease, thyroid disease, lupus, ulcer, cancer, seizure, stroke. SOCIAL HISTORY He is a smoker, has about three drinks of rum a day. Lives with his sister. FAMILY HISTORY Positive for cancer in his father. Negative for seizure or stroke. Positive CAD. MEDICATIONS He was on a cholesterol med at home. 1. Fenofibrate 2. Atenolol. ALLERGIES NO KNOWN DRUG ALLERGIES PHYSICAL EXAMINATION on exam he has been in sinus rhythm, afebrile. 78, 19, 176/103 to 133/76 There were no carotid bruits. HEART: Regular rhythm. I did not detect a murmur. Pupils are equal. Visual ricardo are full. Extraocular movements are intact without nystagmus. There is a minimal left facial droop but he moves symmetrically with normal station. Tongue was midline. There is no drift. He had normal strength in upper and lower extremities bilaterally. Toes are downgoing bilaterally. Pinprick is intact throughout. He had some neglect on the left leg on double simultaneous stimuli but not on the left arm. Speech is fluent. He is not aphasic. Alert and oriented times three. LABORATORY DATA Basic metabolic profile essentially normal. LFTs are normal. Troponin is negative. LDL cholesterol is 24, thyroid, B12 all normal. UA is negative. Coags are normal. IMAGING STUDIES MRI of the brain, MRA [place] was [place], MRA of the neck as noted above. CARDIOLOGY STUDIES Echocardiogram was normal. IMPRESSION Right symptomatic internal carotid artery stenosis significant. He has diminished flow in that right carotid and some a skipped lesion indicating greater than 90% stenosis on the right. I am going to transfer him over to [place], have vascular surgery see him. We will keep his head of bed flat, IV hydration and keep his blood pressure up. I will be following him with you in the hospital. The timing of the surgery we will have to work out with vascular surgery. MD YOGESH Coles/ /6:31 PM /12:09 PM
[2016-09-04 13:03] LABS: ANA SCREEN NEG (NEG)
--- NOTE | 2016-09-04 13:08 | HHI.PR ---
Subjective Remarks sr Objective Vital Signs Date Time Temp Pulse Resp B/P Pulse Ox O2 Delivery O2 Flow Rate FiO2 09/04/16 12:01 97.0 58 18 157/81 97 09/04/16 10:33 97 21 09/04/16 08:16 98.9 60 18 147/89 94 09/04/16 08:00 60 09/04/16 05:43 97.2 71 17 154/88 97 09/04/16 01:30 47 09/04/16 00:21 97.2 63 17 162/89 96 09/03/16 20:22 96 21 09/03/16 20:14 63 09/03/16 20:00 97.3 59 16 160/105 96 09/03/16 16:00 98.6 78 19 133/76 96 09/03/16 15:50 58 16 97 I/O 09/03/16 09/03/16 09/03/16 09/04/16 09/04/16 09/04/16 07:00 15:00 23:00 07:00 15:00 23:00 Intake Total 937 ml 240 ml Output Total 195 ml 825 ml Balance -195 ml 937 ml -585 ml Intake Oral 280 ml 240 ml IV Total 657 ml Output Urine Total 195 ml 825 ml # Voids 1 1 # Bowel Movements 0 Result Diagram: 09/04/16 0709 09/04/16 0709 Objective Remarks left droop vff 5/5 bue and ble dss legs nl now Assessment and Plan Assessment and Plan imp await vascular but i am hesitant to wait 4-6 weeks for cea asa for now we could add statin? i dw rads about possible earlier stent? they will callme back 09/04/16 1 pm i fany rocha he reviewed case not good stent candidate now due to size of cva and vessel start low dose statin see what vascular surgery states Jesus Pandey MD Sep 04, 2016 13:08
[2016-09-04] MEDS: ATORVASTATIN 10 MG TAB PO SCH (13:21)
[2016-09-04] MEDS: THIAMINE HCL 100 MG TAB PO SCH (14:00)
[2016-09-04] MEDS ORDERED: IOHEXOL 350 MG/ML 10 ML VIAL (for RAD DIAG) IV ONE (14:19)
--- NOTE | 2016-09-04 14:36 | RADRPT ---
EXAM DATE/TIME: 09/04/2016 14:01 [place] COMPARISON: US CAROTID ARTERIES, September 03, 2016, 14:51. INDICATIONS : Carotid stenosis. IV CONTRAST: 80 cc Omnipaque 350 (iohexol) IV RADIATION DOSE: 28.21 CTDIvol (mGy) MEDICAL HISTORY : Cardiovascular disease. Hypertension. Cerebrovascular disease. SURGICAL HISTORY : None. ENCOUNTER: Initial ACUITY: 1 day PAIN SCALE: 0/10 LOCATION: neck TECHNIQUE: Volumetric scanning was performed using a multirow detector CT scanner. The data was post processed with a variety of visualization algorithms including full-volume maximum intensity projection, multip lanar sliding thin-slab reformation, curved-planar reformation, and surface-rendering techniques. Us ing automated exposure control and adjustment of the mA and/or kV according to patient size, radiatio n dose was kept as low as reasonably achievable to obtain optimal diagnostic quality images. FINDINGS: AORTIC ARCH: There is a three-vessel origin of the great vessels from the aorta. No evidence of ostial narrowing. There is some atherosclerotic changes of the thoracic aorta. RIGHT CAROTID: The common carotid artery is patent. There is dense calcified plaques at the carotid bifurcation. The internal and external vessels are patent. However, there appears to be a focal high-grade stenosis a t the origin of the right internal carotid artery. The dense calcified plaques makes evaluating the p ercent of stenosis is difficult. However, it appears to be at least 90%. LEFT CAROTID: The common carotid artery is patent. There is some mild calcified atherosclerotic plaques at the orig in of the left internal carotid artery. This is causing some mild stenosis. The internal and axial ve ssels are patent. VERTEBRALS: The vertebral arteries have a symmetric diameter. No definite stenotic lesions are seen. CONCLUSION: 1. There appears to be a focal short segment high-grade stenosis at the origin of the right internal carotid artery of approximately 90%. Dense calcified atherosclerotic plaques are noted at this level. 2. Mild calcified atherosclerotic plaques are the origin of the left internal carotid artery. This is causing mild narrowing of less than 50%. 3. These findings appear to correlate with the ultrasound. Ryland Zee MD on September 04, 2016 at 14:29 Board Certified Radiologist. This report was verified electronically.
[2016-09-04] MEDS: FOLIC ACID 1 MG TAB PO SCH (14:40)
[2016-09-04 14:56] LABS: RAPID PLASMA REAGIN SCREEN NON-REACTIVE (NON-REACTVE)
--- NOTE | 2016-09-04 17:17 | EKG ---
Date Performed: 09/03/2016 Time Performed: 10:28:24 PTAGE: 65 years EKG: Sinus bradycardia Poor R wave progression - probable normal variant Septal T wave changes a re nonspecific Borderline ECG NO PREVIOUS TRACING DOCTOR: Madelin Valera Interpretating Date/Time 09/04/2016 17:15:01
--- NOTE | 2016-09-04 17:41 | PD.VS.CON ---
History of Present Illness Chief Complaint: Denies any complaints at this time. Consult Requested by: Neurology History of Present Illness Pt is a 65 year old male who was found confused and stumbling by his brother and an is essentially amnestic to his CVA (event) approximately 24 hours ago. Denies any residual or preceding TIA Symptoms (A. fugax, expressive aphasia or weakness associated with a side). Smokes but does not use aspirin or antiplatelet medications. Past/Family/Social History Past Medical History hyperlipidemia. Social History smokes 50 pack years. Home Medications Active Scripts Hydrocodone-Acetaminophen 10-325 mg Tab1 Tab PO Q6H PRN (PAIN) #60 TAB Ref 0 Prov:Jono Martinez MD 07/01/16 Reported Medications Atenolol 100 Mg [id number] Mg PO DAILY #30 TAB Ref 0 07/01/16 Fenofibrate 145 Mg [id number] Mg PO DAILY #30 TAB Ref 0 07/01/16 Discontinued Scripts Gabapentin 300 Mg [id number] Mg PO HS #30 CAP Ref 2 Prov:Jono Martinez MD 07/01/16 Coded Allergies: No Known Allergies (Unverified , 08/25/16) Physical Exam Vitals/I&O Date Time Temp Pulse Resp B/P Pulse Ox O2 Delivery O2 Flow Rate FiO2 09/04/16 16:00 97.7 57 16 133/85 98 09/04/16 12:01 97.0 58 18 157/81 97 09/04/16 10:33 97 21 09/04/16 08:16 98.9 60 18 147/89 94 09/04/16 08:00 60 09/04/16 05:43 97.2 71 17 154/88 97 09/04/16 01:30 47 09/04/16 00:21 97.2 63 17 162/89 96 09/03/16 20:22 96 21 09/03/16 20:14 65 09/03/16 20:00 97.3 59 16 160/105 96 Neuro: gross motor and sensory intact. Mild facial drop right sided. HEENT: no carotid bruits. Heart: regular Lungs: CTA bilaterally. Abdomen: soft and non-distended. Vascular: radials palpable bilaterally. Extremities: warm Laboratory Tests Test 09/04/16 07:09 White Blood Count 7.1 Red Blood Count 4.86 Hemoglobin 15.3 Hematocrit 45.1 Mean Corpuscular Volume 92.7 Mean Corpuscular Hemoglobin 31.5 Mean Corpuscular Hemoglobin 34.0 Concent Red Cell Distribution Width 13.4 Platelet Count 198 Mean Platelet Volume 9.3 Neutrophils (%) (Auto) 71.7 Lymphocytes (%) (Auto) 18.6 Monocytes (%) (Auto) 7.3 Eosinophils (%) (Auto) 1.7 Basophils (%) (Auto) 0.7 Neutrophils # (Auto) 5.1 Lymphocytes # (Auto) 1.3 Monocytes # (Auto) 0.5 Eosinophils # (Auto) 0.1 Basophils # (Auto) 0.1 CBC Comment DIFF FINAL Differential Comment Sodium Level 140 Potassium Level 4.1 Chloride Level 109 Carbon Dioxide Level 23.8 Anion Gap 7 Blood Urea Nitrogen 10 Creatinine 0.86 Estimat Glomerular Filtration 90 Rate Random Glucose 102 Calcium Level 8.5 Triglycerides Level 178 Cholesterol Level 102 LDL Cholesterol 26 HDL Cholesterol 40.7 Cholesterol/HDL Ratio 2.50 Last 48 hours Impressions Neck CTA 09/04/16 0000 Signed Impressions: Service Date/Time: Sunday, September 04, 2016 14:01 - CONCLUSION: 1. There appears to be a focal short segment high-grade stenosis at the origin of the right internal carotid artery of approximately 90%%. Dense calcified atherosclerotic plaques are noted at this level. 2. Mild calcified atherosclerotic plaques are the origin of the left internal carotid artery. This is causing mild narrowing of less than 50%%. 3. These findings appear to correlate with the ultrasound. Ryland Zee MD Neck Magnetic Resonance Angiography 09/03/16 1241 Signed Impressions: Service Date/Time: August 13:51 - CONCLUSION: High grade stenosis at the origin of the right internal carotid artery. Jeff Trevino MD Brain MRI 09/03/16 1241 Signed Impressions: Service Date/Time: August 13:51 - CONCLUSION: Early subacute right frontal stroke. Jeff Trevino MD Head Magnetic Resonance Angiography 09/03/16 0000 Signed Impressions: Service Date/Time: August 13:51 - CONCLUSION: Severely diminished flow related enhancement in the right internal denise and artery and diminished signal throughout the anterior circulation vessels on the right. Jeff Trevino MD Head CT 09/03/16 0000 Signed Impressions: Service Date/Time: August 11:21 - CONCLUSION: Evolving right MCA stroke with no evidence of hemorrhage at present. Jeff Trevino MD Carotid Artery Ultrasound 09/03/16 0000 Signed Impressions: Service Date/Time: August 14:51 - CONCLUSION: 1. Severe calcified plaque with high-grade stenosis in the proximal right internal carotid artery. Velocity measurements are decreased through this area with high resistance waveform indicating a high-grade stenosis greater than 70%%. 2. There is mild atherosclerotic disease in the left carotid bulb but less than 50%% stenosis is present. 3. There is antegrade flow in both vertebral arteries. Jeff Patel MD Assessment and Plan Assessment: (1) CVA (cerebral vascular accident) Status: Acute (2) Carotid arterial disease Status: Acute Plan This is a 65 year old male with what appears to be a large frontal CVA. He has a high-grade right ICA stenosis. He has quit smoking while in the hospital and should be started on an antiplatelet agent (previously not on antiplatelet). With the size of his infarct even with a high grade carotid stenosis I think it would be inappropriate to perform a carotid endarterectomy at this point. He can be re-assessed with repeat MRI and follow up in 4 weeks for right CEA. I discussed this with the family at the bedside. They understand the risk of evolution of his present CVA or new CVA events in the interim. I will continue to follow while in the hospital. Regulo Joshua DO, FACS [employer] [facility] . Problem Qualifiers (1) CVA (cerebral vascular accident): Regulo Joshua DO Sep 04, 2016 17:41 Regulo Joshua DO Sep 04, 2016 17:41
[2016-09-05] VITALS (10 sets, daily range): BP systolic 156–190; BP diastolic 81–101; PULSE 46–68; RESP 17–20; TEMP 97.1–99; O2SAT 92–97
[2016-09-05] MEDS ORDERED: KETOROLAC TROMETHAMINE 30 MG/ML (IVP) VIAL IV PUSH ONE (01:15)
[2016-09-05] MEDS ORDERED: diphenhydrAMINE HCL 25 MG CAP PO ONE (01:15)
[2016-09-05] MEDS: SODIUM CHLORIDE 0.9% FLUSH 5 ML FLUSH FLUSH SCH ×2 (08:30→21:00)
[2016-09-05] MEDS: THIAMINE HCL 100 MG TAB PO SCH (08:31)
[2016-09-05] MEDS: ASPIRIN EC 325 MG TABEC PO SCH (08:31)
[2016-09-05] MEDS: FOLIC ACID 1 MG TAB PO SCH (08:31)
[2016-09-05] MEDS: ATORVASTATIN 10 MG TAB PO SCH (08:31)
[2016-09-05] MEDS: HEPARIN SODIUM - SQ 10,000 UNITS/ML VIAL SQ SCH ×2 (08:32→20:44)
--- NOTE | 2016-09-05 08:32 | HHI.PR ---
Subjective Subjective Remarks Rested fairly well Alert, talkative Poor historian of current events Head of bed flat Appetite fair to good (Lakesha Guan) Review of Systems Constitutional Constitutional: Weakness (mild generalized) Constitutional Remarks 10 point ROS done. Systems unremarkable, except for pleasant, poor historian mild left-sided facial droop improved (Lakesha Guan) Neurologic Neurologic Remarks Equal hand medical records secretary, mild facial droop left side (Lakesha Guan) Psychiatric Psychiatric: Normal Mood (Lakesha Guan) Vitals/Results Intake & Output 09/04/16 09/04/16 09/05/16 15:00 23:00 07:00 Intake Total 240 ml Balance 240 ml Intake Oral 240 ml # Voids 2 Vital Signs Vital Signs Date Time Temp Pulse Resp B/P Pulse Ox O2 Delivery O2 Flow Rate FiO2 09/05/16 08:00 98.0 60 20 159/81 96 09/05/16 03:13 98.6 62 17 156/94 96 09/05/16 00:25 98.3 59 17 158/99 96 09/04/16 20:07 98.2 58 17 166/96 94 09/04/16 16:00 97.7 57 16 133/85 98 09/04/16 12:01 97.0 58 18 157/81 97 09/04/16 10:33 97 21 (Lakesha Guan) CBC/BMP: 09/04/16 0709 09/04/16 0709 Imaging Remarks Last Impressions Neck CTA 09/04/16 0000 Signed Impressions: Service Date/Time: Sunday, September 04, 2016 14:01 - CONCLUSION: 1. There appears to be a focal short segment high-grade stenosis at the origin of the right internal carotid artery of approximately 90%%. Dense calcified atherosclerotic plaques are noted at this level. 2. Mild calcified atherosclerotic plaques are the origin of the left internal carotid artery. This is causing mild narrowing of less than 50%%. 3. These findings appear to correlate with the ultrasound. Ryland Zee MD Neck Magnetic Resonance Angiography 09/03/16 1241 Signed Impressions: Service Date/Time: August 13:51 - CONCLUSION: High grade stenosis at the origin of the right internal carotid artery. Jeff Trevino MD Brain MRI 09/03/16 1241 Signed Impressions: Service Date/Time: August 13:51 - CONCLUSION: Early subacute right frontal stroke. Jeff Trevino MD Head Magnetic Resonance Angiography 09/03/16 0000 Signed Impressions: Service Date/Time: August 13:51 - CONCLUSION: Severely diminished flow related enhancement in the right internal denise and artery and diminished signal throughout the anterior circulation vessels on the right. Jeff Trevino MD Head CT 09/03/16 0000 Signed Impressions: Service Date/Time: August 11:21 - CONCLUSION: Evolving right MCA stroke with no evidence of hemorrhage at present. Jeff Trevino MD Carotid Artery Ultrasound 09/03/16 0000 Signed Impressions: Service Date/Time: August 14:51 - CONCLUSION: 1. Severe calcified plaque with high-grade stenosis in the proximal right internal carotid artery. Velocity measurements are decreased through this area with high resistance waveform indicating a high-grade stenosis greater than 70%%. 2. There is mild atherosclerotic disease in the left carotid bulb but less than 50%% stenosis is present. 3. There is antegrade flow in both vertebral arteries. Jeff Patel MD Current Medications Active Medications Aspirin (Ecotrin Ec) 325 mg DAILY PO Last administered on 09/04/16 08:32; Admin Dose 325 MG; Start 09/04/16 at 09:00 Atorvastatin Calcium (Lipitor) 10 mg DAILY PO Last administered on 09/04/16 13: 21; Admin Dose 10 MG; Start 09/04/16 at 14:00 Diphenhydramine HCl (Benadryl) 25 mg ONCE ONCE PO Last administered on 02:12; Admin Dose 25 MG; Start 09/05/16 at 01:15; Stop 09/05/16 at 01:18; Status DC Folic Acid (Folate) 1 mg DAILY PO Last administered on 09/04/16 14:40; Admin Dose 1 MG; Start 09/04/16 at 14:00 Iohexol (Omnipaque 350 Inj) 80 ml STK-MED ONCE IV Last administered on 14:19; Admin Dose 80 ML; Start 09/04/16 at 14:19; Stop 09/04/16 at 14:20; Status DC Ketorolac Tromethamine (Toradol Inj) 15 mg ONCE ONCE IV PUSH Last administered on 09/05/16 02:12; Admin Dose 15 MG; Start 09/05/16 at 01:15; Stop 09/05/16 at 01:18; Status DC Thiamine HCl (Vitamin B1) 100 mg DAILY PO Last administered on 09/04/16 14:00; Admin Dose 100 MG; Start 09/04/16 at 14:00 (Lakesha Guan) Physical Exam General General Appearance: Well Developed, Well Nourished, No Acute Distress, Comfortable (Lakesha Guan) Eyes Eye Exam: Pupils Equal, Pupils Reactive, Sclera White (Lakesha Guan) Ears & Nose Ears & Nose Exam: Nasal Mucosa [place] (Lakesha Guan) Throat Throat Exam: Oral Mucosa [place] & Moist (Lakesha Guan) Neck Neck Exam: Neck Supple, Bruits (right side) (Lakesha Guan) Pulmonary Resp Exam: Breath Sounds Equal, No Distress, Diminished Breath Sounds Resp Remarks Long-term smoker, quit in the hospital (Lakesha Guan) Cardiology CV Exam: Regular (Lakesha GuanP) Gastrointestinal/Abdomen GI Exam: Soft, Non-Tender, Bowel Sounds Present (Lakesha Guan) Musculoskeletal MS Exam: Joints Intact (Lakesha Guan) Integumentary Skin Exam: Clear, Warm, Dry (Lakesha Guan) Extremeties Extremities Exam: No Edema (Lakesha Guan) Neurologic Neuro Exam: Alert, Awake, Speech Clear, Moving All Extremities, Hook And Eye Attacher Equal Neuro Remarks Poor historian over current situation (Lakesha Guan) VTE Prophylaxis VTE Prophylaxis Device: SCDs, TEDs VTE Prophylaxis Meds: Heparin VTE Remarks ASA (Lakesha GuanP) Assessment/Plan Assessment/Plan (1) CVA (cerebral vascular accident) (2) Hyperlipidemia (3) HTN (hypertension) (4) Tobacco abuse 65-year-old male with history of hypertension, admitted with 2 day history of not acting right, facial droop and confusion. Evaluated in the emergency room and found with subacute right frontal stroke in right ICA stenosis. -Neurology consulted for evaluation, evaluated per Dr. Pandey. Recommended transfer to [facility]. Input appreciated. -Neuro workup in progress, imaging studies reviewed. Plan for right carotid endarterectomy, 4 weeks per vascular surgery note Continue with normal saline at 100 hour, hydration, taking by mouth fluids well. Appetite fair to good ordered food this a.m. Head of bed down Bed rest Neuro checks per protocol -Vascular surgery has been consulted for carotid disease Continue with aspirin Has been started on statins Lipid profile noted 2-D echo done, EF 55-60%. -Tobacco cessation counseling done Tobacco abuse Tobacco abuse counseling done Chronic back pain, stable Monitor Tylenol when necessary Daily alcohol use, indicates recent stressors in life, from his after 32 years of marriage. Start thiamine and folic acid -Encouraged to limit alcohol use Supportive care Heparin for DVT prophylaxis Home medications reviewed, initiated as indicated Plan of care discussed with Dr. Mark. Will review any need for therapy This patient was seen by myself and Dr. Mark, this H&P is written on her behalf Discussed Condition with: Patient (Lakesha Guan) Assessment/Plan patient seen and examined awake alert, with intermittent confusion family at bed side on full dose ASA awaiting final PT recs for discharge possible discharge soon , if cleared by neuro Vascular surgery will wait 4 weeks prior to CEA pain meds ordered for chronic back pain discussed with patient and family at bed side discussed with Lakesha ENRIQUEZ (Henrietta Mark MD) Lakesha Guan Sep 05, 2016 08:32 Henrietta Mark MD Sep 05, 2016 15:07
[2016-09-05] MEDS: SODIUM CHLOR 0.9% 1000 ML INJ 1,000 ML IV SCH ×2 (11:06→20:50)
[2016-09-05] MEDS: ACETAMINOPHEN/HYDROcodone 325 MG/5 MG TAB PO PRN ×2 (15:18→22:35)
[2016-09-06 04:00] VITALS: BP 170/97; PULSE 52; RESP 18; TEMP 97.3; O2SAT 94
[2016-09-06] MEDS: ACETAMINOPHEN/HYDROcodone 325 MG/5 MG TAB PO PRN ×2 (04:36→09:02)
[2016-09-06 08:00] VITALS: BP 172/100; PULSE 56; RESP 17; TEMP 97; O2SAT 96
[2016-09-06] MEDS: THIAMINE HCL 100 MG TAB PO SCH (09:01)
[2016-09-06] MEDS: FOLIC ACID 1 MG TAB PO SCH (09:01)
[2016-09-06] MEDS: ATORVASTATIN 10 MG TAB PO SCH (09:01)
[2016-09-06] MEDS: HEPARIN SODIUM - SQ 10,000 UNITS/ML VIAL SQ SCH (09:02)
[2016-09-06] MEDS: ASPIRIN EC 325 MG TABEC PO SCH (09:04)
[2016-09-06] MEDS: SODIUM CHLORIDE 0.9% FLUSH 5 ML FLUSH FLUSH SCH (09:08)
--- NOTE | 2016-09-06 10:29 | HHI.DS ---
Discharge Summary Admission Date Sep 03, 2016 at 12:25 Discharge Date: Sep 06, 2016 Admitting Diagnosis CVA (1) CVA (cerebral vascular accident) (2) Hyperlipidemia (3) HTN (hypertension) (4) Tobacco abuse (5) Carotid arterial disease (6) Lumbar degenerative disc disease CBC/BMP: 09/04/16 0709 09/04/16 0709 Significant Findings Laboratory Tests Test 09/03/16 09/03/16 09/04/16 11:15 13:00 07:09 Neutrophils (%) (Auto) 79.5 % 71.7 % (16.0-70.0) (16.0-70.0) Chloride Level 108 MEQ/L 109 MEQ/L (98-107) (98-107) Estimat Glomerular Filtration 80 ML/MIN (>89) Rate Random Glucose 107 MG/DL (74-106) Troponin I LESS THAN 0.02 NG/ML (0.02-0.05) Cholesterol Level 97 MG/DL 102 MG/DL (120-200) (120-200) Triglycerides Level 178 MG/DL (42-150) Imaging Last Impressions Neck CTA 09/04/16 0000 Signed Impressions: Service Date/Time: Sunday, September 04, 2016 14:01 - CONCLUSION: 1. There appears to be a focal short segment high-grade stenosis at the origin of the right internal carotid artery of approximately 90%%. Dense calcified atherosclerotic plaques are noted at this level. 2. Mild calcified atherosclerotic plaques are the origin of the left internal carotid artery. This is causing mild narrowing of less than 50%%. 3. These findings appear to correlate with the ultrasound. Ryland Zee MD Neck Magnetic Resonance Angiography 09/03/16 1241 Signed Impressions: Service Date/Time: August 13:51 - CONCLUSION: High grade stenosis at the origin of the right internal carotid artery. Jeff Trevino MD Brain MRI 09/03/16 1241 Signed Impressions: Service Date/Time: August 13:51 - CONCLUSION: Early subacute right frontal stroke. Jeff Trevino MD Head Magnetic Resonance Angiography 09/03/16 0000 Signed Impressions: Service Date/Time: August 13:51 - CONCLUSION: Severely diminished flow related enhancement in the right internal denise and artery and diminished signal throughout the anterior circulation vessels on the right. Jeff Trevino MD Head CT 09/03/16 Signed Impressions: Service Date/Time: August 11:21 - CONCLUSION: Evolving right MCA stroke with no evidence of hemorrhage at present. Jeff Trevino MD Carotid Artery Ultrasound 09/03/16 Signed Impressions: Service Date/Time: August 14:51 - CONCLUSION: 1. Severe calcified plaque with high-grade stenosis in the proximal right internal carotid artery. Velocity measurements are decreased through this area with high resistance waveform indicating a high-grade stenosis greater than 70%%. 2. There is mild atherosclerotic disease in the left carotid bulb but less than 50%% stenosis is present. 3. There is antegrade flow in both vertebral arteries. Jeff Patel MD Hospital Course This is a 65-year-old male who is generally in good health, history of hypertension and tobacco abuse. Patient was brought into the emergency room by his sister and [id number] for evaluation after he was noted acting confused for the last 2 days. Patient's sister endorses that she noted that he came home from work 2 days ago and he seemed disoriented and taking time doing simple tasks, had trouble opening a salad bottle. He was noted shaking. Initially his sister thought that maybe he had had some alcohol which he denied. Yesterday he actually didn't wake up early to go to work and when she woke him up he thought it was Wednesday. He got up and got dressed and drove to work. She called to check on him and one of his coworkers informed her to come pick him up as he noted at facial droop and that he had not been acting right. He went to the [facility] emergency room and the facial droop had resolved. Patient was evaluated, imaging studies were completed. CT of the brain showed evolving right MCA stroke with no evidence of hemorrhage. Aspirin was given. Dr. Pandey was called and requested transfer to [facility]. Neck MRA has been done and shows high-grade stenosis at the origin of the right internal carotid artery. Patient is examined in the presence of his sister. Patient still has residual facial droop, he is not confused and answering questions appropriately. Patient is somewhat anxious and is noted mildly tremulous. Indicates that he doesn't drink every day but occasionally will have a couple of cocktails a day. Endorses a lot of stress as he recently from his of 32 years. Denies any depression, no suicidal ideation. Patient was admitted for further evaluation and treatment for: (1) CVA (cerebral vascular accident) (2) Carotid arterial disease (3) Tobacco abuse (4) HTN (hypertension) (5) Hyperlipidemia (6) Lumbar degenerative disc disease During the course of the hospitalization, the following took place: 65-year-old male with history of hypertension, admitted with 2 day history of not acting right, facial droop and confusion. Evaluated in the emergency room and found with subacute right frontal stroke and right ICA stenosis. -Neurology consulted for evaluation, evaluated per Dr. Pandey. Recommended transfer to [facility]. Input appreciated. Initiated neuro work up -Neuro workup in progress, imaging studies reviewed. Noted right ICA occlusion. Dr. Pandey initially discussed with IR for poss. stent, they recommended vascular consultation. Dr. Joshua consulted, evaluated pt. Ok for pt. to wait for surgery. Plan for right carotid endarterectomy, will have repeat imaging. -Initially with head of bed flat, permissive hypertension, IV fluids Neuro checks per protocol Started and continued aspirin -Started on statin Lipid profile noted 2-D echo done, EF 55-60%. -Tobacco cessation counseling done -Patient remained stable neuro Tobacco abuse Tobacco abuse counseling done, he agreed to quit Chronic back pain, stable Monitor Tylenol when necessary Daily alcohol use, indicates recent stressors in life, from his after 32 years of marriage. Put on thiamine and folic acid -Encouraged to limit alcohol use HTN, bp up -Resumed Atenolol -Hydralazine when necessary added Heparin for DVT prophylaxis Home medications reviewed, initiated as indicated -PT/OT/ST -OOB with PT -CM for DC planning Patient cleared for discharge Neuro intact, stable CM consult for HHC/PT Discharged home with HHC F/U neurology F/U Dr. Joshua 4 weeks-he will repeat MRI for right CEA. Pt Condition on Discharge: Good Discharge Disposition: Disch w/ Home Health Serv Discharge Instructions DIET: Follow Instructions for: Heart Healthy Diet Activities you can perform: Weight Bearing as Ene[place] Follow up Referrals: Physical Medicine & Rehab - 1 Month with Joyce Lockwood MD Vascular Surgery - 4 Weeks with Regulo Joshua V. DO New Medications: ([Aspirin Ec]) 325 MG TABEC 325 MG PO DAILY strok #30 Ref 0 TAB.EC Continued Medications: Atenolol (Atenolol) 100 Mg Tab 100 MG PO DAILY Blood Pressure Management #30 Ref 0 TAB Fenofibrate (Fenofibrate) 145 Mg Tab 125 MG PO DAILY #30 Ref 0 TAB Hydrocodone-Acetaminophen (Hydrocodone-Acetaminophen) 10-325 mg Tab 1 TAB PO Q6H PRN PAIN #60 Ref 0 TAB Lillian Gray Sep 06, 2016 10:29 Lillian Gray Sep 06, 2016 10:29
--- NOTE | 2016-09-06 10:29 | HHI.PR ---
Subjective Subjective Remarks sitting up in chair anxious to go home no cp no sob no focal deficits mild facial droop no fever BP elevated Review of Systems Constitutional Constitutional: Weakness (mild generalized) Constitutional Remarks 12 point ROS completed, negative except as noted above Psychiatric Psychiatric: Normal Mood Vitals/Results Intake & Output 09/05/16 09/05/16 09/06/16 15:00 23:00 07:00 Intake Total 360 ml 240 ml Balance 360 ml 240 ml Intake Oral 360 ml 240 ml # Voids 2 3 3 # Bowel Movements 0 Vital Signs Vital Signs Date Time Temp Pulse Resp B/P Pulse Ox O2 Delivery O2 Flow Rate FiO2 09/06/16 08:00 97.0 56 17 172/100 96 09/06/16 04:00 97.3 52 18 170/97 94 09/05/16 23:10 178/97 09/05/16 21:00 60 19 180/95 09/05/16 20:58 97.1 56 18 190/101 92 09/05/16 16:00 99.0 68 20 161/89 97 09/05/16 15:24 62 09/05/16 12:00 98.2 60 20 163/84 96 09/05/16 10:35 46 CBC/BMP: 09/04/16 0709 09/04/16 0709 Physical Exam General General Appearance: Well Developed, Well Nourished, No Acute Distress, Comfortable Eyes Eye Exam: Pupils Equal, Pupils Reactive, Sclera White, Extraocular Movement Intact Ears & Nose Ears & Nose Exam: Nasal Mucosa [place] Throat Throat Exam: Oral Mucosa [place] & Moist Neck Neck Exam: Neck Supple Pulmonary Resp Exam: Breath Sounds Equal, No Distress, Diminished Breath Sounds Cardiology CV Exam: Regular Gastrointestinal/Abdomen GI Exam: Soft, Non-Tender, Bowel Sounds Present, Non-Distended Musculoskeletal MS Exam: Joints Intact Integumentary Skin Exam: Clear, Warm, Dry Extremeties Extremities Exam: No Edema, Pedal Pulses Palpable Neurologic Neuro Exam: Alert, Awake, Oriented, Speech Clear, Moving All Extremities, Collateral Clerk Equal Neuro Remarks facial droop Psychiatric Psych Exam: Appropriate Responses VTE Prophylaxis VTE Prophylaxis Device: SCDs, TEDs VTE Prophylaxis Meds: Heparin Assessment/Plan Problem List: (1) CVA (cerebral vascular accident) (2) Carotid arterial disease (3) Tobacco abuse (4) HTN (hypertension) (5) Hyperlipidemia (6) Lumbar degenerative disc disease Assessment/Plan 65-year-old male with history of hypertension, admitted with 2 day history of not acting right, facial droop and confusion. Evaluated in the emergency room and found with subacute right frontal stroke in right ICA stenosis. -Neurology consulted for evaluation, evaluated per Dr. Pandey. Recommended transfer to [facility]. Input appreciated. -Neuro workup in progress, imaging studies reviewed. Plan for right carotid endarterectomy, 4 weeks per vascular surgery note DC IVF -Inc. activity, OOB with PT Neuro checks per protocol -Vascular surgery has been consulted for carotid disease, input appreciated Continue with aspirin Has been started on statins Lipid profile noted 2-D echo done, EF 55-60%. -Tobacco cessation counseling don Tobacco abuse Tobacco abuse counseling done Chronic back pain, stable Monitor Tylenol when necessary Daily alcohol use, indicates recent stressors in life, from his after 32 years of marriage. Continue thiamine and folic acid -Encouraged to limit alcohol use HTN, bp up -Resume Atenolol Heparin for DVT prophylaxis Home medications reviewed, initiated as indicated Plan of care discussed with Dr. Makr. -PT/OT/ST -OOB with PT -CM for DC planning Plan to discharge today F/U neurology F/U Dr. Joshua 4 weeks-he will repeat MRI for right CEA. D/W RN D/W Dr. Mark D/W Pt. This patient was seen by myself and Dr. Mark, this note is written on her behalf Problem Qualifiers (1) CVA (cerebral vascular accident): Qualified Code: I63.311 - Cerebrovascular accident (CVA) due to thrombosis of right middle cerebral artery (2) HTN (hypertension): Qualified Code: I10 - Essential hypertension (3) Hyperlipidemia: Qualified Code: E78.5 - Hyperlipidemia, unspecified hyperlipidemia type Lillian Gray Sep 06, 2016 10:29
[2016-09-06] MEDS ORDERED: ATENOLOL 100 MG TAB PO SCH (10:30)
[2016-09-06] MEDS ORDERED: amLODIPine BESYLATE 5 MG TAB PO SCH (10:30)
[2016-09-06] MEDS ORDERED: Aspirin Ec PO (10:31)
--- NOTE | 2016-09-06 10:32 | HHI.DCPOC ---
Discharge Care Plan Diagnosis: (1) CVA (cerebral vascular accident) (2) Carotid arterial disease Your Health Problems Are: Difficulty with ADL Goals to Promote Your Health * To prevent worsening of your condition and complications * To maintain your health at the optimal level Directions to Meet Your Goals Take your medications as prescribed Follow your dietary instruction Follow activity as directed Keep your appointments as scheduled Take your immunizations and boosters as scheduled If your symptoms worsen call your PCP, if no PCP go to Urgent Care Center or Emergency Room Smoking is Dangerous to Your Health. Avoid second hand smoke Call the 24-hour hour crisis hotline for domestic abuse at Lillian Gray Sep 06, 2016 10:32
--- NOTE | 2016-09-06 10:35 | HHI.FF ---
Face to Face Verification Diagnosis: (1) CVA (cerebral vascular accident) Physical Therapy Order: Evaluate and Treat Home Health Nursing Order: Medical education Nursing assessment with vital signs [employer] Order: To Evaluate: Support services I have seen patient Ronal Minor on 09/06/16. My clinical findings support the need for the requested home health care services because: Deconditioned w/ increased weakness Impaired cognition/judgement High risk of falls I certify that my clinical findings support that this patient is homebound because: Impaired cognitive ability/safety Lillian Gray Sep 06, 2016 10:35
[2016-09-06 11:16] VITALS: PULSE 65
[2016-09-06 11:17] VITALS: PULSE 65
[2016-09-06 12:00] VITALS: BP 172/99; PULSE 56; RESP 17; TEMP 97.8; O2SAT 97
[2016-09-06] MEDS ORDERED: hydrALAZINE HCL 10 MG TAB PO ONE (15:00)
[2016-09-06 15:32] VITALS: BP 141/90; PULSE 50; RESP 20; TEMP 98; O2SAT 100
[2016-09-07] MEDS ORDERED: FENOFIBRATE 145 MG TAB PO SCH (09:00)
--- NOTE | 2016-09-07 12:31 | HM ---
Date Performed: 09/04/2016 Time Performed: 16:11:00 HOOKUP DATE: 09/04/16 04:11:00 PM Fri ANALYSIS START TIME: 09/04/2016 4:16:00 PM ANALYSIS END TIME: 09/05/2016 3:43:59 PM PATIENT AGE: 65 PATIENT HEIGHT PATIENT WEIGHT DRUG LIST PATIENT DIAGNOSIS TEST NARRATIVE: The patient's average heart rate was 61 BPM. No episodes of tachycardia wer e noted. Heart rates less than 50 BPM were noted 16% of the time. One pause of 2.2 seconds occur red at 03:02 AM. 4 ventricular ectopics, which represented < 1% of the total beat count, were not ed. The highest ventricular ectopic frequency occurred from 02:00 PM to 03:00 PM Sat. During this t derian 2 VE(s) occurred. Ventricular ectopics were observed as 2 isolated beat(s) and as 1 couplet(s). No runs were noted. 274 supraventricular ectopics, which represented < 1% of the total beat coun t, were noted. The highest supraventricular ectopic frequency occurred from 06:00 AM to 07:00 AM Sat . During this time 75 SVE(s) occurred. No episodes of ST depression (defined as -1.0 mm or more) were noted in channel 1. No episodes of ST depression (defined as -1.0 mm or more) were noted in ch edilson 2. No episodes of ST depression (defined as -1.0 mm or more) were noted in channel 3. TEST INTERPRETATION: Holter demonstrates normal Sinus rhythm with rare PAC and few PVCs. Minimum rate was 43 bpm at 3 a.m. Signed by : Jesus Torres
== END 2016-09-06 15:56 | disposition home or self-care (01) | DRG 66 ==
LOC: PHED 10:08 → PHEDA 12:25 → PH3A 15:50 → N05B 22:49
PROVIDERS: ADMIT Internal Medicine; ATTEND Internal Medicine
DX: I63.311 Cerebral infarction due to thrombosis of right middle cerebral artery (principal); I10 Essential (primary) hypertension; R29.810 Facial weakness; E78.00 Pure hypercholesterolemia, unspecified; F17.210 Nicotine dependence, cigarettes, uncomplicated; I65.23 Occlusion and stenosis of bilateral carotid arteries; E78.5 Hyperlipidemia, unspecified; M51.36 Other intervertebral disc degeneration, lumbar region; G89.29 Other chronic pain; Z82.49 Family history of ischemic heart disease and other diseases of the circulatory system; Z83.0 Family history of human immunodeficiency virus [HIV] disease; Z83.3 Family history of diabetes mellitus; Z80.42 Family history of malignant neoplasm of prostate
CPT/HCPCS: 70450; 70498; 70544; 70548; 70553; 80048; 80061; 81001; 82550; 82607; 83036; 84425; 84439; 84443; 84450; 84460; 84484; 85025; 85610; 85652; 85730; 86038; 86592; 93005; 93225; 93226; 93306; 93880; A9579; J1644; J1885; J3480; J7030; Q9967

== ENCOUNTER 2016-10-14 16:25 | Inpatient (IN) | payer OTHER ==
[~2016-10-14] VITALS: Ht 170.2 cm; Wt 77.8 kg
[~2016-10-14 16:25] MED LIST changes: -FENO145T2 PO; -GABA300C5 PO
[2016-10-16] MEDS ORDERED: ASPI325T PO (14:36)
[2016-10-16] MEDS ORDERED: ATOR10TA15 PO (14:39)
[2016-11-05] MEDS ORDERED: GABA300C5 PO (19:03)
[2016-11-27] VITALS (8 sets, daily range): BP systolic 104–164; BP diastolic 54–96; PULSE 44–70; RESP 17–18; TEMP 97.9–99.2; O2SAT 97–99
[2016-11-27] MEDS ORDERED: LACTATED RINGER'S 1000 ML IV PRN (06:45)
[2016-11-27] MEDS ORDERED: METOPROLOL TARTRATE 25 MG TAB PO PRN (06:45)
[2016-11-27] MEDS ORDERED: SODIUM CHLORID 0.9% 500 ML IV PRN (06:45)
[2016-11-27] MEDS ORDERED: CHLORHEXIDINE GLUCONATE 2 % 1 PACK (2 CLOTHS) TOPICAL PRN (06:45)
[2016-11-27] MEDS ORDERED: INSULIN HUMAN REGULAR 1,000 UNITS/10 ML VIAL SQ PRN (06:45)
[2016-11-27] MEDS ORDERED: POVIDONE IODINE 5% (ANTISEPSIS KIT) 4 APPLICATIONS EACH NARE PRN (06:45)
[2016-11-27] MEDS ORDERED: SUGAMMADEX SODIUM 200 MG/2 ML VIAL IV PUSH ONE ×2 (07:14)
[2016-11-27] MEDS ORDERED: ACETAMINOPHEN 1000 MG/100 ML VIAL IV ONE (07:14)
[2016-11-27 07:17] LABS: AUTOMATED NEUTROPHIL # 5.1 TH/MM3 (1.8-7.7); BASOPHIL # 0.1 TH/MM3 (0-0.2); BASOPHIL % 1.1 % (0.0-2.0); EOSINOPHIL # 0.2 TH/MM3 (0-0.4); HEMO FLAGS DIFF FINAL; LYMPH % 18.4 % (9.0-44.0); LYMPHOCYTE # 1.4 TH/MM3 (1.0-4.8); MEAN CELL VOLUME 94.4 FL (80.0-100.0); MEAN CORPUSCULAR HEMOGLOBIN 31.3 PG (27.0-34.0); MEAN CORPUSCULAR HGB CONC 33.1 % (32.0-36.0); MONO % 9.7 % (0.0-8.0); NEUT % 67.8 % (16.0-70.0); PLATELET COUNT 204 TH/MM3 (150-450); RED BLOOD COUNT 5.08 MIL/MM3 (4.50-5.90); RED CELL DISTRIBUTION WIDTH 13.3 % (11.6-17.2); WHITE BLOOD COUNT 7.5 TH/MM3 (4.0-11.0)
[2016-11-27 07:19] LABS: BLOOD, URINE TRACE (NEG); COMMENT (UR) CULT NOT INDICATED; CULTURE IF INDICATED CULT NOT INDICATED; GLUCOSE,URINE NEG (NEG); GRANULAR CAST, URINE 3 /lpf; HYALINE CAST, URINE 12 /lpf (RARE); KETONE, URINE NEG (NEG); MUCUS URINE FEW /lpf (OCC); NITRITE,URINE NEG (NEG); SQUAMOUS EPITHELIAL CELL URINE <1 /hpf (0-5); URINE COLOR YELLOW (YELLW/STRAW)
[2016-11-27 07:30] LABS: ALT (GPT) 20 U/L (12-78); ANION GAP 6 MEQ/L (5-15); AST (GOT) 15 U/L (15-37); BICARBONATE 25.2 MEQ/L (21.0-32.0); BLOOD UREA NITROGEN 18 MG/DL (7-18); CHLORIDE 109 MEQ/L (98-107); GLOMERULAR FILTRATION RATE 70 ML/MIN (>89); POTASSIUM 4.3 MEQ/L (3.5-5.1); SODIUM (NA) 140 MEQ/L (136-145)
[2016-11-27 07:32] LABS: ALKALINE PHOSPHATASE 80 U/L (45-117); TOTAL BILIRUBIN ADULT 0.5 MG/DL (0.2-1.0)
[2016-11-27] MEDS ORDERED: HEPARIN SODIUM - IV 10,000 UNITS/10 ML VIAL ONE (07:51)
[2016-11-27] MEDS ORDERED: THROMBIN (TOPICAL) 20,000 UNIT VIAL ONE (07:51)
[2016-11-27] MEDS ORDERED: LIDOCAINE HCL 1% 20 ML VIAL ONE (07:51)
[2016-11-27] MEDS ORDERED: HEPARIN SODIUM - SQ 10,000 UNITS/ML VIAL OTHER ONE (08:00)
[2016-11-27] MEDS ORDERED: FAMOTIDINE 20 MG/2 ML VIAL ONE (08:07)
[2016-11-27] MEDS ORDERED: DEXAMETHASONE SOD PHOS 4 MG/ML VIAL ONE (08:08)
[2016-11-27] MEDS ORDERED: CITRIC ACID-SODIUM CITRATE LIQ 30 ML UDC ONE (08:11)
[2016-11-27] MEDS ORDERED: MIDAZOLAM HCL 2 MG/2 ML VIAL IV SCH (08:15)
[2016-11-27] MEDS ORDERED: FAMOTIDINE 20 MG/2 ML VIAL IV PUSH SCH (08:15)
[2016-11-27] MEDS ORDERED: HYDROmorphone HCL PF 2 MG/ML VIAL ONE (08:18)
[2016-11-27] MEDS ORDERED: fentaNYL CITRATE 250 MCG/5 ML AMP ONE (08:20)
[2016-11-27] MEDS ORDERED: CITRIC ACID PO ONE (08:30)
[2016-11-27] MEDS ORDERED: GELFOAM SIZE 100 ONE (08:30)
[2016-11-27] MEDS ORDERED: SODIUM CITRATE PO ONE (08:30)
[2016-11-27] MEDS ORDERED: BUPIVACAINE/EPINEPHRINE 0.5% 50 ML VIAL ONE (08:31)
--- NOTE | 2016-11-27 08:47 | PD.VS.PN ---
Pre-operative Note Pre-operative diagnosis: Hx of symptomatic right ICA stenosis with CVA. Planned procedure: Right CEA Interval History: 66 year old with hx of right ICA stenosis (high grade) and previous large CVA approximately 3 months ago. Risk of hemorrhagic stroke, reperfusion syndrome and cranial nerve injury explained to patient in detail. Labs: Laboratory Results Test 11/27/16 07:00 White Blood Count 7.5 TH/MM3 (4.0-11.0) Red Blood Count 5.08 MIL/MM3 (4.50-5.90) Hemoglobin 15.9 GM/DL (13.0-17.0) Hematocrit 48.0 % (39.0-51.0) Mean Corpuscular Volume 94.4 FL (80.0-100.0) Mean Corpuscular Hemoglobin 31.3 PG (27.0-34.0) Mean Corpuscular Hemoglobin 33.1 % Concent (32.0-36.0) Red Cell Distribution Width 13.3 % (11.6-17.2) Platelet Count 204 TH/MM3 (150-450) Mean Platelet Volume 8.7 FL (7.0-11.0) Prothromb Time International 1.0 RATIO Ratio Sodium Level 140 MEQ/L (136-145) Potassium Level 4.3 MEQ/L (3.5-5.1) Chloride Level 109 MEQ/L (98-107) Carbon Dioxide Level 25.2 MEQ/L (21.0-32.0) Anion Gap 6 MEQ/L (5-15) Blood Urea Nitrogen 18 MG/DL (7-18) Random Glucose 97 MG/DL (74-106) Calcium Level 9.1 MG/DL (8.5-10.1) Blood: T&S EKG: See chart. Imaging: CTA and carotid duplex US right ICA stenosis high grade. Orders: signed. Post-operative destination: ICU Operative site marked: Yes Consent: Informed consent has been obtained from Ronal Minor. I have explained the procedure in detail and discussed the risks, benefits, and potential complications. All questions have been answered. Patient contact information: See chart demographics Regulo Joshua DO November 27, 2016 08:47
[2016-11-27] MEDS ORDERED: ceFAZolin 2 GM PREMIX 50 ML ONE (08:55)
[2016-11-27] MEDS ORDERED: THROMBIN (TOPICAL) 5,000 UNIT VIAL ONE (10:02)
[2016-11-27] MEDS ORDERED: PROTAMINE SULFATE 50 MG/5 ML VIAL ONE (10:44)
[2016-11-27] MEDS ORDERED: SODIUM CHLORIDE 0.9% FLUSH 10 ML FLUSH IV FLUSH PRN (11:00)
[2016-11-27] MEDS ORDERED: ACETAMINOPHEN 325 MG TAB PO PRN (11:00)
[2016-11-27] MEDS ORDERED: POTASSIUM CHLOR 20 MEQ PREMIX 100 ML IV PRN ×3 (11:00→17:30)
[2016-11-27] MEDS ORDERED: niCARdipine INJ 25 MG in SODIUM CHLOR 0.9% 250 ML INJ 250 ML IV ONE (11:00)
--- NOTE | 2016-11-27 11:07 | HHI.PR ---
Immediate Post Op Note Procedure Date: November 27, 2016 Pre Op Diagnosis: (1) CVA (cerebral vascular accident) (2) Carotid arterial disease Post Op Diagnosis: (1) Carotid arterial disease Surgeon: Regulo Joshua Desk Operator(s): Michelle Morel Procedure: Right CEA Findings: HIgh grade carotid stenosis. Additional Information: NA Complications: None Specimen(s) removed: Plaque Estimated blood loss: less than 50cc Anesthesia: General Drains: None Fluids: 800 cc IVF Tourniquet time (min at mmHg) NA Patient to: PACU Patient Condition: Good Implant/Devices: Other Date/Time of Procedure: Other Regulo Joshua DO November 27, 2016 11:07
[2016-11-27] MEDS ORDERED: niCARdipine INJ 25 MG in SODIUM CHLOR 0.9% 250 ML INJ 250 ML IV SCH (12:00)
[2016-11-27] MEDS ORDERED: MIDAZOLAM HCL 2 MG/2 ML VIAL ONE (12:31)
[2016-11-27] MEDS ORDERED: PROPOFOL 200 MG/20 ML AMP IV ONE (12:45)
[2016-11-27] MEDS ORDERED: LACTATED RINGER'S 1000 ML INJ 1,000 ML IV ONE (12:46)
[2016-11-27] MEDS ORDERED: ONDANSETRON HCL 4 MG/2 ML VIAL IV PUSH ONE (12:46)
--- NOTE | 2016-11-27 15:18 | PD.CONS ---
[facility] Service Critical Care Medicine Consult Requested By Dr. Joshua Reason for Consult co-management of hemodynamics Primary Care Physician Deep Jade MD History of Present Illness This is a 66-year-old male with a history of hypertension, hypercholesterolemia. Back in August 2016 he presented to the emergency department with a subacute right MCA infarct area during the workup of this, he was diagnosed with severe high-grade stenosis of the right internal carotid artery. At that time he was stabilized and discharged home. He represents today for elective right carotid endarterectomy. His intraoperative course was uncomplicated. He presents to the CVICU postoperatively extubated, following commands, moving all 4 extremities. Critical-care medicine is consulted to evaluate and manage his hemodynamics in the immediate postoperative period. He is still arousing from anesthesia very somnolent. However, he denies pain at surgical site, or chest pain, nausea or vomiting. Review of Systems ROS Limitations: Clinical Condition Cardiovascular: DENIES: Chest pain Neurologic: DENIES: Headache, Localized weakness ROS arousing from anesthesia, somnolent. Past Family Social History Allergies: Coded Allergies: No Known Allergies (Unverified , 10/16/16) Past Medical History HTN Hyperlipidemia Tobacco abuse Past Surgical History Arthroscopic knee repair Reconstructive back surgery Reported Medications Hydrocodone-Acetaminophen 10-325 mg Tab 1 Tab PO Q6H PRN Atenolol 100 Mg Tab 100 Mg PO DAILY Fenofibrate 145 Mg Tab 125 Mg PO DAILY Active Ordered Medications See MAR Family History Mother , hx CEA, CAD, stent Father , prostate cancer Brother, , AIDS Brother, , pancreatitis complications Sister, a&w, hx DM II Older brother, a&w, healthy Social History Recently , has grown children. Having some stress due to work and divorce. Smokes 1 ppd since age 19, drinks approximately 5 + drinks a week, no illegal drug use. Physical Exam Vital Signs Vital Signs Date Time Temp Pulse Resp B/P Pulse Ox O2 Delivery O2 Flow Rate FiO2 11/27/16 12:00 97.9 70 17 159/96 97 164/89 11/27/16 07:01 99.2 48 18 151/88 98 Physical Exam GENERAL: middle-aged male, lying in bed, somnolent but arousable HEENT: PERRL. mucous membranes moist. NECK: Trachea is midline. There is a dressing over the right anterior neck incision. Is clean, dry, intact. There is no hematoma the site. CHEST: Unlabored respirations. Equal chest rise. CARDIOVASCULAR: Normal rate, regular rhythm. Sinus rhythm by telemetry. Systolic blood pressures 133 on my evaluation. Currently not on nicardipine. ABDOMEN: Soft, nontender, nondistended. No guarding. MUSCULOSKELETAL: No peripheral edema. Distal pulses 2+. Radial arterial line in place with dressing which is clean and dry. NEUROLOGICAL: RASS -1. Follows commands all 4 extremities. No gross focal deficits. GENITOURINARY: Ferrera in place with clear yellow urine Laboratory Laboratory Tests Test 11/27/16 07:00 White Blood Count 7.5 Red Blood Count 5.08 Hemoglobin 15.9 Hematocrit 48.0 Mean Corpuscular Volume 94.4 Mean Corpuscular Hemoglobin 31.3 Mean Corpuscular Hemoglobin 33.1 Concent Red Cell Distribution Width 13.3 Platelet Count 204 Mean Platelet Volume 8.7 Neutrophils (%) (Auto) 67.8 Lymphocytes (%) (Auto) 18.4 Monocytes (%) (Auto) 9.7 Eosinophils (%) (Auto) 3.0 Basophils (%) (Auto) 1.1 Neutrophils # (Auto) 5.1 Lymphocytes # (Auto) 1.4 Monocytes # (Auto) 0.7 Eosinophils # (Auto) 0.2 Basophils # (Auto) 0.1 CBC Comment DIFF FINAL Differential Comment Prothrombin Time 11.0 Prothromb Time International 1.0 Ratio Urine Color YELLOW Urine Turbidity CLEAR Urine pH 5.0 Urine Specific [place] 1.021 Urine Protein TRACE Urine Glucose (UA) NEG Urine Ketones NEG Urine Occult Blood TRACE Urine Nitrite NEG Urine Bilirubin NEG Urine Urobilinogen 2.0 Urine Leukocyte Esterase NEG Urine RBC 1 Urine WBC 1 Urine Squamous Epithelial <1 Cells Urine Hyaline Casts 12 Urine Granular Casts 3 Urine Mucus FEW Microscopic Urinalysis Comment CULT NOT INDICATED Sodium Level 140 Potassium Level 4.3 Chloride Level 109 Carbon Dioxide Level 25.2 Anion Gap 6 Blood Urea Nitrogen 18 Creatinine 1.06 Estimat Glomerular Filtration 70 Rate Random Glucose 97 Calcium Level 9.1 Total Bilirubin 0.5 Aspartate Amino Transf 15 (AST/SGOT) Alanine Aminotransferase 20 (ALT/SGPT) Alkaline Phosphatase 80 Total Protein 7.0 Albumin 3.5 Blood Type O POSITIVE Antibody Screen NEGATIVE Blood Bank Comment Result Diagram: 11/27/16 0700 5/19/17 0700 Assessment and Plan Assessment and Plan Assessment: 66yM POD 0 s/p right CEA. Neuro intact. I agree with keeping him in an intensive care unit overnight given his recent large area ischemic stroke and high risk for reperfusion injury. Plan: 1. Acute post-operative pain -- lortab prn for pain 2. s/p Right CEA -- frequent neuro checks 3. Hypertension -- goal SBP 100 - 130. -- nicardipine as needed to maintain goal. 4. recent MCA infarct -- continue ASA -- advance diet as tolerated -- keep Ferrera for tonight. -- SCDs -- hold pharmacologic DVT prophylaxis tonight. will consider starting it in AM. Dispo: ICU overnight for close monitoring. Code Status Full Code Discussed Condition With Dr. Josiane Recio,José Luis Carver MD November 27, 2016 15:18
--- NOTE | 2016-11-27 15:31 | PD.VS.PN ---
Subjective POD #: 0 Procedure(s): R CEA Subjective/Hospital Course Pt laying in bed alert and in NAD Pt without any neurological deficits CN 2-12 intact (Tracy Jauregui) Objective Vitals/I&O Date Time Temp Pulse Resp B/P Pulse Ox O2 Delivery O2 Flow Rate FiO2 11/27/16 12:00 97.9 70 17 159/96 97 164/89 11/27/16 07:01 99.2 48 18 151/88 98 Exam: GENERAL: A&OX3, NAD, GCS15 SKIN: Warm and dry. Incision to Right side of neck I/C/D NECK: Supple, No JVD CARDIOVASCULAR: RRR CN 2-12 intact Laboratory Laboratory Tests Test 11/27/16 07:00 White Blood Count 7.5 Red Blood Count 5.08 Hemoglobin 15.9 Hematocrit 48.0 Mean Corpuscular Volume 94.4 Mean Corpuscular Hemoglobin 31.3 Mean Corpuscular Hemoglobin 33.1 Concent Red Cell Distribution Width 13.3 Platelet Count 204 Mean Platelet Volume 8.7 Neutrophils (%) (Auto) 67.8 Lymphocytes (%) (Auto) 18.4 Monocytes (%) (Auto) 9.7 Eosinophils (%) (Auto) 3.0 Basophils (%) (Auto) 1.1 Neutrophils # (Auto) 5.1 Lymphocytes # (Auto) 1.4 Monocytes # (Auto) 0.7 Eosinophils # (Auto) 0.2 Basophils # (Auto) 0.1 CBC Comment DIFF FINAL Differential Comment Prothrombin Time 11.0 Prothromb Time International 1.0 Ratio Urine Color YELLOW Urine Turbidity CLEAR Urine pH 5.0 Urine Specific [place] 1.021 Urine Protein TRACE Urine Glucose (UA) NEG Urine Ketones NEG Urine Occult Blood TRACE Urine Nitrite NEG Urine Bilirubin NEG Urine Urobilinogen 2.0 Urine Leukocyte Esterase NEG Urine RBC 1 Urine WBC 1 Urine Squamous Epithelial <1 Cells Urine Hyaline Casts 12 Urine Granular Casts 3 Urine Mucus FEW Microscopic Urinalysis Comment CULT NOT INDICATED Sodium Level 140 Potassium Level 4.3 Chloride Level 109 Carbon Dioxide Level 25.2 Anion Gap 6 Blood Urea Nitrogen 18 Creatinine 1.06 Estimat Glomerular Filtration 70 Rate Random Glucose 97 Calcium Level 9.1 Total Bilirubin 0.5 Aspartate Amino Transf 15 (AST/SGOT) Alanine Aminotransferase 20 (ALT/SGPT) Alkaline Phosphatase 80 Total Protein 7.0 Albumin 3.5 Blood Type O POSITIVE Antibody Screen NEGATIVE Blood Bank Comment (Tracy Jauregui) Assessment and Plan Assessment: (1) Carotid arterial disease Status: Acute Plan Plan Bedrest today Continue frequent neuro checks Call to report any new onset headache Tracy ENRIQUEZ [facility] [phone] Discharge Planning 1-2 days (Tracy Jauregui) Plan Post-op Neurologically intact. Regulo Joshua DO, FACS Hand Tacker of Vascular Surgery [facility] (Regulo Joshua DO) Problem Qualifiers (1) Carotid arterial disease: Qualified Code: I77.9 - Right-sided carotid artery disease Tracy Jauregui November 27, 2016 15:31 Regulo Joshua DO November 27, 2016 15:57
[2016-11-27] MEDS: ACETAMINOPHEN/HYDROcodone 325 MG/5 MG TAB PO PRN ×3 (17:20→22:51)
[2016-11-27] MEDS: ceFAZolin 2 GM PREMIX 50 ML IV SCH (17:21)
[2016-11-27] MEDS ORDERED: SODIUM PHOSPHATE INJ 30 MMOL in SODIUM CHLOR 0.9% 250 ML INJ 240 ML IV PRN (17:30)
[2016-11-27] MEDS ORDERED: MAGNESIUM SULFATE INJ 4 GM in SODIUM CHLORIDE 0.9% INJ 92 ML IV PRN (17:30)
[2016-11-27] MEDS ORDERED: POTASSIUM PHOSPHATE MONOBASIC 500 MG TAB PO/TUBE PRN (17:30)
[2016-11-27] MEDS ORDERED: POTASSIUM PHOSPHATE MONOBASIC 500 MG TAB PO PRN (17:30)
[2016-11-27] MEDS ORDERED: POTASSIUM CHLOR 40 MEQ PREMIX 100 ML IV PRN ×2 (17:30)
[2016-11-27] MEDS ORDERED: MAGNESIUM SULFATE INJ 2 GM in SODIUM CHLORIDE 0.9% INJ 96 ML IV PRN (17:30)
[2016-11-27] MEDS ORDERED: MAGNESIUM OXIDE 400 MG TAB PO PRN (17:30)
[2016-11-27] MEDS: SODIUM CHLORIDE 0.9% FLUSH 10 ML FLUSH IV FLUSH SCH (22:04)
[2016-11-28] VITALS: BP_SYST 104; BP_SYST 112; BP_DIAS 57; BP_DIAS 60; PULSE 57; RESP 18; TEMP 98.2; O2SAT 97
[2016-11-28] MEDS: ceFAZolin 2 GM PREMIX 50 ML IV SCH ×2 (02:50→10:32)
[2016-11-28 04:00] VITALS: BP_SYST 104; BP_SYST 117; BP_DIAS 58; BP_DIAS 60; PULSE 45; RESP 18; TEMP 98; O2SAT 94
[2016-11-28 04:22] VITALS: PULSE 42
[2016-11-28] MEDS: ACETAMINOPHEN/HYDROcodone 325 MG/5 MG TAB PO PRN ×2 (05:16→08:58)
[2016-11-28 05:41] LABS: HEMATOCRIT 40.1 % (39.0-51.0); REVIEW FLAG FINAL
[2016-11-28 06:02] LABS: BICARBONATE 26.2 MEQ/L (21.0-32.0); MAGNESIUM 2.1 MG/DL (1.5-2.5); POTASSIUM 3.8 MEQ/L (3.5-5.1)
--- NOTE | 2016-11-28 06:48 | HHI.CCPN ---
Subjective Remarks/Hospital Course Hospital Course: This is a 66-year-old male with a history of hypertension, hypercholesterolemia. Back in August 2016 he presented to the emergency department with a subacute right MCA infarct area during the workup of this, he was diagnosed with severe high-grade stenosis of the right internal carotid artery. At that time he was stabilized and discharged home. He represents today for elective right carotid endarterectomy. His intraoperative course was uncomplicated. He presents to the CVICU postoperatively extubated, following commands, moving all 4 extremities. Critical-care medicine is consulted to evaluate and manage his hemodynamics in the immediate postoperative period. He is still arousing from anesthesia very somnolent. However, he denies pain at surgical site, or chest pain, nausea or vomiting. Subjective: 11/28: doing well. up in chair on my evaluation. denies headache, blurry vision, dizziness, sob. Caruso removed early this morning, no void yet. ambulated. sbp controlled off vasoactive substances. Objective Vital Signs Date Time Temp Pulse Resp B/P Pulse Ox O2 Delivery O2 Flow Rate FiO2 11/28/16 04:00 98.0 45 18 104/60 94 117/58 11/27/16 21:11 Nasal Cannula 2.00 Intake and Output 11/27/16 11/27/16 11/28/16 08:00 16:00 00:00 Intake Total 410 ml Output Total 850 ml Balance -440 ml Result Diagram: 11/28/1651911/28/16 05 Objective Remarks GENERAL: middle-aged male, sitting in chair, awake, alert, no acute distress. HEENT: PERRL. mucous membranes moist. NECK: Trachea is midline. There is a dressing over the right anterior neck incision. Is clean, dry, intact. There is no hematoma the site. CHEST: Unlabored respirations. Equal chest rise. CARDIOVASCULAR: Normal rate, regular rhythm. Sinus rhythm by telemetry. Systolic blood pressures 106 on my evaluation. ABDOMEN: Soft, nontender, nondistended. No guarding. MUSCULOSKELETAL: No peripheral edema. Distal pulses 2+. NEUROLOGICAL: RASS 0. Follows commands all 4 extremities. No gross focal deficits. A/P Assessment and Plan Assessment: 66yM POD 1 s/p right CEA. Neuro intact. On pathway. No complaints. From my standpoint, the patient is stable to transfer out of ICU and is stable to d/c home if cleared by vascular surgery. Plan: 1. Acute post-operative pain- adequately controlled. -- lortab prn for pain 2. s/p Right CEA -- no signs of complications. remainder of management per vascular surgery. 3. Hypertension- controlled. -- liberalize SBP goals 100 - 160. 4. recent MCA infarct -- continue ASA -- tolerating regular diet. -- caruso and arterial line removed. -- SCDs -- if patient does not d/c home today, will start pharmacologic DVT prophylaxis. Dispo: either transfer out of ICU or d/c home, at vascular surgery discretion. Critical Care Medicine will sign-off. Please reconsult as needed. José Luis Recio MD November 28, 2016 06:47
[2016-11-28 07:00] VITALS: BP 111/71; PULSE 46; RESP 16; TEMP 98.4; O2SAT 95
[2016-11-28] MEDS: SODIUM CHLORIDE 0.9% FLUSH 10 ML FLUSH IV FLUSH SCH (08:58)
[2016-11-28] MEDS ORDERED: ASPIRIN EC 81 MG TABEC PO SCH (09:00)
[2016-11-28 09:34] VITALS: O2SAT 96
[2016-11-28 11:00] VITALS: BP 125/76; PULSE 45; PULSE 47; RESP 18; TEMP 98.1; O2SAT 94
--- NOTE | 2016-11-28 12:02 | PD.VS.DC ---
Discharge Summary Admission Date: November 27, 2016 at 06:19 Admission Diagnosis: (1) CVA (cerebral vascular accident) (2) Carotid arterial disease Discharge Diagnosis: (1) Carotid arterial disease Diagnosis: Principal Status: Acute Brief History from admission hx of right sided (intracranial) CVA approximately 3 months ago. Status post right CEA. Neurologically intact post-op Procedure(s): R CEA Significant Findings Laboratory Tests Test 11/27/16 07:00 Monocytes (%) (Auto) 9.7 % (0.0-8.0) Urine Occult Blood TRACE (NEG) Urine Mucus FEW /lpf (OCC) Chloride Level 109 MEQ/L (98-107) Estimat Glomerular Filtration 70 ML/MIN (>89) Rate Hospital Course: tolerating diet and urinated with being neurologically intact post op. Discharge Condition: Good Discharge Disposition: Discharge Home Discharge Instructions: may shower. no driving. Any questions or concerns: Call [facility] at [facility] [phone] Regulo Joshua DO November 28, 2016 12:02
[2016-11-28] MEDS ORDERED: ACETAMINOPHEN/HYDROcodone 325 MG/10 MG TAB PO PRN (12:15)
[2016-11-28] MEDS ORDERED: PERC5TAB12 PO (13:01)
--- NOTE | 2016-11-28 18:14 | MP ---
cc: BERNARDINO JOSHUA DATE OF SURGERY 11/27/16 PREOPERATIVE DIAGNOSIS History of stroke right brain with a high-grade ICA stenosis. POSTOPERATIVE DIAGNOSIS History of stroke right brain with a high-grade ICA stenosis. PROCEDURE Right carotid endarterectomy with neuro monitoring SURGEON Dr. Samuel Joshua CREATIVE WRITING PROFESSOR Michelle Haas IV FLUIDS 900 cc of crystalloid ESTIMATED BLOOD LOSS Less than 50 mL URINE OUTPUT NA COMPLICATIONS None DISPOSITION To post anesthesia care unit PROCEDURE IN DETAIL The patient's right neck was prepped and draped in sterile fashion after irrigating with perioperative antibiotics. The patient had an incision made over the right neck from the tragus towards the sternal notch over the anterior border of the sternocleidomastoid with scalpel and electrocautery. I dissected down through the platysma and then across anteriorly to the sternocleidomastoid. I retracted the sternocleidomastoid back posteriorly. I tied off any branches of the internal jugular vein with 2-0 and 3-0 silks with medium small clips as needed. Once I mobilized the vein, I then mobilized the artery and dissected it free of any periadventitial tissue. I dissected out the common, internal and external carotid arteries. I divided the septal branch of the external iliac artery to allow for further exposure of the distal internal carotid artery. I used a 2-0 silk as a vessel loop to the superior thyroid artery. I heparinized the patient to an ACT of greater than 300. I then placed clamps on the internal, external and common carotid arteries. I performed an arteriotomy with an 11-blade and Castelan scissors. It should be noted that the carotid was nearly occlusive just at the level distal to the bifurcation of the internal carotid artery. I used a [place] elevator to remove any plaque. I cleaned the back wall of the artery and then I sewed a bovine patch on it 0.8 x 8 with a 5-0 Prolene in a parachute fashion. At the end, I did use two 6-0 Prolene for correction stitches. There was no changes on neuro monitoring with clamping internal carotid artery and hence I did not shunt. I did forward bleed the common and external before releasing the clamp to the internal carotid artery. I made sure I had hemostasis. I used Surgicel at the base and closed in layers with 2-0 and 3-0 Vicryl and 4-0 Monocryl. We did use approximately 15 mL of 0.25% Marcaine with epinephrine in the incision. DO ANG Boykin/ /11:00 AM /5:50 PM
[2016-11-28] MEDS ORDERED: GABAPENTIN 300 MG CAP PO SCH (21:00)
[2016-11-28] MEDS ORDERED: ATORVASTATIN 10 MG TAB PO SCH (21:00)
[2016-11-29] MEDS ORDERED: ASPIRIN 325 MG TAB PO SCH (09:00)
[2016-11-29] MEDS ORDERED: ATENOLOL 100 MG TAB PO SCH (09:00)
== END 2016-11-28 14:00 | disposition home or self-care (01) | DRG 39 ==
LOC: HSDI 11-27 06:19 → HCVR 11-27 11:50
PROVIDERS: ADMIT Surgery; ATTEND Surgery
PROC: 03UK0KZ Supplement Right Internal Carotid Artery with Nonautologous Tissue Substitute, Open Approach (ICD-10-PCS; 2016-11-27)
PROC: 03CK0Z6 (ICD-10-PCS; principal; 2016-11-27 08:39)
DX: I65.21 Occlusion and stenosis of right carotid artery (principal); I10 Essential (primary) hypertension; E78.5 Hyperlipidemia, unspecified; G89.18 Other acute postprocedural pain; F17.210 Nicotine dependence, cigarettes, uncomplicated; Z86.73 Personal history of transient ischemic attack (TIA), and cerebral infarction without residual deficits
CPT/HCPCS: 80048; 80053; 81001; 83735; 84100; 85014; 85018; 85025; 85610; 86850; 86900; 86901; C1768; J0131; J0690; J1100; J1170; J1644; J2250; J2405; J2720; J3010; J7050; J7120